=== PATIENT | female | born 1960 | race Caucasian/White ===

== ENCOUNTER 2022-12-21 21:46 | Observation (INO) | payer OTHER ==
[~2022-12-21] VITALS: Ht 170.2 cm; Wt 88.9 kg
[~2022-12-21 21:46] MED LIST: ASPIRIN E.C. 8181 MG PO; ATENOLOL25 MG PO; ATIVAN 1MG T1 MG/TAB PO; COLACE 100100 MG/CAP PO; FLOVENT 220MCG7.9 GM IH; FLOVENT DI50 MCG/Act IH; HCTZ 25MG TAB25 MG PO; HCTZ 25MG25 MG PO; K-DUR20 MEQ PO; MOTRIN 600600 MG/TAB PO; NEURONTIN100 MG PO; NEURONTIN100 MG/CAP PO; PROAIR HFA0.09 MG/AC IH; SINGULAIR 110 MG/TAB PO; TENORMIN 5050 MG/TAB PO; TRICOR 48MG48 MG PO; VITAMIN D31000 I1 PO; ZYRTEC ALLERGY10 MG PO
[2022-12-21 22:02] LABS: BASO % 0.3 % (0.0-2.0); EOS # 0.1 K/mm3 (0.0-0.7); EOS % 1.1 % (0.0-4.0); GRAN # 8.1 K/mm3 (1.4-6.5); GRAN % 66.2 % (42.2-75.2); HEMATOCRIT 40.3 % (37.0-47.0); HEMOGLOBIN 13.4 g/dl (12.5-16.0); LYMPH # 3.3 K/mm3 (1.2-3.4); LYMPH % 27.2 % (20.0-51.0); MEAN CELL VOLUME 94 fl (80.0-100.0); MEAN CORPUSCULAR HEMOGLOBIN 31 pg (27-31); MEAN CORPUSCULAR HGB CONC 33 g/dl (33.0-37.0); MEAN PLATELET VOLUME 9.7 fl (7.4-10.4); MONO # 0.6 K/mm3 (0.1-0.6); MONO % 4.9 % (1.7-9.3); PLATELET COUNT 369 K/mm3 (130-400); RED BLOOD COUNT 4.29 M/mm3 (4.10-5.30); REDCELL DISTRIBUTION WIDTH-CV 14.9 % (11.5-14.5)
[2022-12-21 22:12] LABS: PROTHROMBIN TIME 11.7 SECONDS (9.7-12.8)
[2022-12-21 22:23] LABS: ALANINE AMINOTRANSFERASE 17 U/L (0-55); ALBUMIN 3.9 gm/dL (3.4-4.8); ALKALINE PHOSPHATASE 141 U/L (40-150); ANION GAP 14 mmol/L (7-16); AST,SGOT 11 U/L (5-34); BILIRUBIN,TOTAL 0.6 mg/dL (0.2-1.2); BLOOD UREA NITROGEN 9 mg/dL (10-20); CALCIUM 9.8 mg/dL (8.4-10.2); CARBON DIOXIDE 30 mmol/L (23-31); CHLORIDE 93 mmol/L (98-107); GLUCOSE 128 mg/dL (70-99); SODIUM 137 mmol/L (136-145); TOTAL PROTEIN 7.6 gm/dL (6.2-8.1)
[2022-12-21 22:26] LABS: POTASSIUM 2.9 mmol/L (3.5-4.5)
[2022-12-21 22:31] LABS: TROPONIN-I < 0.010 ng/mL (0.00-0.033)
[2022-12-22] MEDS ORDERED: NEURONTIN300 MG/CAP PO (01:12)
[2022-12-22] MEDS ORDERED: REQUIP0.25 MG PO (01:12)
[2022-12-22 01:51] VITALS: BP 109/60; PULSE 55; TEMP 97.6
[2022-12-22 03:26] LABS: COLLECTION METHOD CLEAN CATCH
[2022-12-22 03:31] LABS: MUCOUS Present (NOT PRESENT); URINE BACTERIA Moderate /hpf (NONE SEEN); URINE RBC 0-2 /hpf (0-2)
[2022-12-22 03:32] LABS: PH 6.5 (5.0-8.5); URINE APPEARANCE Hazy (CLEAR/HAZY); URINE COLOR Yellow (YELLOW)
[2022-12-22 03:33] LABS: URINE BLOOD Negative (NEGATIVE); URINE GLUCOSE Negative (NEGATIVE); URINE KETONE Negative (NEGATIVE); URINE NITRATE Positive (NEGATIVE); URINE PROTEIN(semi-quant) Negative (NEGATIVE); URINE UROBILINOGEN 0.2 E.U/dL (0.2-1.0)
--- NOTE | 2022-12-22 05:00 | NUR ---
PT ARRIVED TO THE MEDICAL FLOOR AROUND 0200HRS TO ROOM 357. PT A&O X 4; VSS WITH B/P A BIT LOW; O2 RA. PT DENIED GENERAL PAIN, CHEST PAIN, PALPITATIONS, SOB, N,V,D OR DIZZINESS. ADMISSIONS ASSESSMENT COMPLETE. PT STATED SHE WOULD HAVE HER SISTER BRING IN HER MED LIST BECAUSE SHE WAS UNABLE TO REMEMBER ALL HER MEDS. PT ORIENTED TO THE ROOM AND HOSPITAL POLICY. POC DISCUSSED WITH PT. PT VERBALIZED UNDERSTANDING. ALL QUESTIONS AND CONCERNS ADDRESSED. PT EXPRESSED NO ADDITIONAL NEEDS AT THIS TIME. CALL LIGHT WITHIN REACH.
[2022-12-22 05:09] VITALS: BP 101/61; PULSE 56; TEMP 97.5
[2022-12-22 06:40] LABS: BASO # 0.1 K/mm3 (0.0-0.2); BASO % 0.6 % (0.0-2.0); EOS # 0.1 K/mm3 (0.0-0.7); EOS % 1.7 % (0.0-4.0); GRAN # 5.3 K/mm3 (1.4-6.5); GRAN % 62.9 % (42.2-75.2); HEMOGLOBIN 11.7 g/dl (12.5-16.0); LYMPH # 2.4 K/mm3 (1.2-3.4); LYMPH % 28.9 % (20.0-51.0); MEAN CELL VOLUME 93 fl (80.0-100.0); MEAN CORPUSCULAR HEMOGLOBIN 32 pg (27-31); MEAN CORPUSCULAR HGB CONC 34 g/dl (33.0-37.0); MONO # 0.5 K/mm3 (0.1-0.6); MONO % 5.7 % (1.7-9.3); PLATELET COUNT 333 K/mm3 (130-400); RED BLOOD COUNT 3.69 M/mm3 (4.10-5.30); REDCELL DISTRIBUTION WIDTH-CV 15.1 % (11.5-14.5)
[2022-12-22 06:43] LABS: HEMATOCRIT 34.3 % (37.0-47.0)
[2022-12-22 07:01] LABS: ANION GAP 9 mmol/L (7-16); BLOOD UREA NITROGEN 9 mg/dL (10-20); CALCIUM 8.9 mg/dL (8.4-10.2); CARBON DIOXIDE 29 mmol/L (23-31); CHLORIDE 99 mmol/L (98-107); CREATININE, serum 0.72 mg/dL (0.57-1.11); GLUCOSE 113 mg/dL (70-99); MAGNESIUM 1.9 mg/dL (1.6-2.6); POTASSIUM 3.5 mmol/L (3.5-4.5); SODIUM 137 mmol/L (136-145)
[2022-12-22 07:11] LABS: TROPONIN-I < 0.010 ng/mL (0.00-0.033)
--- NOTE | 2022-12-22 08:00 | NUR ---
Patient is resting in bed, aler and oriented x 4, states some pain in her chest but not as before. Telemetry in place, NSR. Assessment completed, no further needs at this time. Call light within reach.
[2022-12-22 08:13] VITALS: BP 101/43; PULSE 58; TEMP 98.4
--- NOTE | 2022-12-22 11:33 | NUR ---
Director Executive Communications rounds: Patient was eating breakfast. Director Executive Communications located straws for the Patient to make drinking her juice easier. Patient is unable to use left arm. Patient had a stroke. Patient has previously been to inpatient rehab at a facility in [place]. Director Executive Communications facilitated life review and provided supportive listening. Patient was able to cry at times. She said that she is not able to cry at home because she feels she needs to care for others. Patient's sister and [id number] live with her in [place]. She was supposed to be caring for them and now they frequently care for her. She has three sons. She is a . Director Executive Communications prayed for Patient.
[2022-12-22 11:57] VITALS: BP 93/51; PULSE 58; TEMP 98.1
--- NOTE | 2022-12-22 15:31 | NUR ---
SW met with pt for intake. Pt cofirmed living in [facility] with her son, Sister, and Brother in law. PT reports NOK is son Arley Delgado . Pt denies having DPOA. Pt denies oxygen at home. Pt confirms DME: walker, wheel chair, ptotty chair, shower chair. Pt reports needing help getting to the shower and getting dressed. Pt reports PCP is [facility] and fills meds there. Pt reports at times having communication issues with pharmacy but not having challenges with paying for them. Pt reports receiving Speech and OT from [facility] and PT from [facility]. Pt reports speeking to therapist about SNF due to caregivers being 5 years older than her and having limits on helping her. HUYEN will discuss with nurse and DC plan Home or SNF
[2022-12-22 16:15] VITALS: BP 110/40; PULSE 67; TEMP 98
[2022-12-22] MEDS ORDERED: PLAVIX 75MG TAB75 MG PO (18:14)
[2022-12-22] MEDS ORDERED: MIRTAZAPINE7.5 MG PO (18:20)
[2022-12-22] MEDS ORDERED: SENNA-LAX8.6 MG PO (18:21)
[2022-12-22] MEDS ORDERED: LIPITOR 40MG TA40 MG PO (18:23)
[2022-12-22] MEDS ORDERED: PROVIGIL 100MG100 MG PO (18:24)
[2022-12-22 20:00] VITALS: BP 105/44; PULSE 63; TEMP 97.4
[2022-12-23] VITALS (9 sets, daily range): BP systolic 101–120; BP diastolic 40–77; PULSE 58–84; TEMP 96.5–97.5
[2022-12-23 07:01] LABS: BASO # 0.1 K/mm3 (0.0-0.2); BASO % 0.6 % (0.0-2.0); EOS # 0.2 K/mm3 (0.0-0.7); GRAN % 62.4 % (42.2-75.2); HEMOGLOBIN 12.4 g/dl (12.5-16.0); LYMPH # 2.4 K/mm3 (1.2-3.4); LYMPH % 29.5 % (20.0-51.0); MEAN CELL VOLUME 92 fl (80.0-100.0); MEAN CORPUSCULAR HEMOGLOBIN 31 pg (27-31); MEAN CORPUSCULAR HGB CONC 34 g/dl (33.0-37.0); MEAN PLATELET VOLUME 10.1 fl (7.4-10.4); MONO # 0.4 K/mm3 (0.1-0.6); MONO % 5.3 % (1.7-9.3); PLATELET COUNT 326 K/mm3 (130-400); RED BLOOD COUNT 3.97 M/mm3 (4.10-5.30)
[2022-12-23 07:02] LABS: HEMATOCRIT 36.6 % (37.0-47.0)
[2022-12-23 07:11] LABS: CALCIUM 9.4 mg/dL (8.4-10.2); CREATININE, serum 0.71 mg/dL (0.57-1.11); POTASSIUM 3.2 mmol/L (3.5-4.5)
--- NOTE | 2022-12-23 07:45 | NUR ---
Pt sitting in recliner. Transferred to wheelchair, x2 assist. Morning medications held for stress test. Shift assessment completed. Telemetry on. L upper & lower extremity remain immobile. INT in R AC patent, no edmea or redness. Ethan,student currently obtaining VS. Pt aware she will be having a lexiscan today. Call light within reach.
[2022-12-23] MEDS ORDERED: CEFTIN 250250 MG/TAB PO (13:23)
--- NOTE | 2022-12-23 14:09 | NUR ---
CRISPIN charting reviewed, agree with documentation. PAIGE Flores Clinical Instructor
--- NOTE | 2022-12-23 15:04 | NUR ---
INT in L AC discontinued with catheter tip intact.
--- NOTE | 2022-12-23 15:47 | NUR ---
Pt discharge instructions given at this time. All questions answered. Pt waiting for ride to arrive.
== END 2022-12-23 16:30 | disposition home or self-care (01) ==
LOC: COL.ER 21:46 → MEDICAL 12-22 00:15
PROVIDERS: Emergency Medicine; Student in an Organized Health Care Education/Training Program; ADMIT Student in an Organized Health Care Education/Training Program
DX: R07.89 Other chest pain (principal); R60.0 Localized edema; N39.0 Urinary tract infection, site not specified; E87.6 Hypokalemia; D72.829 Elevated white blood cell count, unspecified; J43.9 Emphysema, unspecified; I10 Essential (primary) hypertension; F41.9 Anxiety disorder, unspecified; G25.81 Restless legs syndrome; Z87.891 Personal history of nicotine dependence; Z86.73 Personal history of transient ischemic attack (TIA), and cerebral infarction without residual deficits; Z79.899 Other long term (current) drug therapy
CPT/HCPCS: A9500; G0378; J0696; J1650; J2785; J3480; Q9967

== ENCOUNTER 2024-05-04 12:22 | Inpatient (IN) | payer MEDICARE, OTHER ==
[~2024-05-04] VITALS: Ht 170.2 cm; Wt 90.6 kg
[~2024-05-04 12:22] MED LIST changes: +CEFTIN 250250 MG/TAB PO; +DYAZIDE 25 MG-31 CAP PO; -HCTZ 25MG TAB25 MG PO; +LIPITOR 40MG TA40 MG PO; +MIRTAZAPINE7.5 MG PO; +NEURONTIN300 MG/CAP PO; +PLAVIX 75MG TAB75 MG PO; +PROVIGIL 100MG100 MG PO; +REQUIP0.25 MG PO; +SENNA-LAX8.6 MG PO
[2024-05-12] VITALS (7 sets, daily range): BP systolic 105–145; BP diastolic 69–87; PULSE 66–107; TEMP 97.3–97.9
[2024-05-12] MEDS ORDERED: Morphine 2 MG/1 ML VIAL [PACU/SDC ONLY] IV PRN (10:30)
[2024-05-12] MEDS ORDERED: HYDROmorphone 1 MG/1 ML SYRINGE [PACU/SDC ONLY] IV PRN (10:30)
[2024-05-12] MEDS ORDERED: fentaNYL 50 MCG/ML 1 ML SYRINGE/VIAL [PACU/SDC ONLY] IV PRN (10:30)
[2024-05-12] MEDS ORDERED: hydrALAZINE 20 MG/ML 1 ML VIAL IV PRN (10:30)
[2024-05-12] MEDS ORDERED: Ondansetron 4 MG/2 ML VIAL IV PRN (10:30)
[2024-05-12] MEDS ORDERED: droPERidol 2.5 MG/ML 2 ML VIAL IV PRN (10:30)
[2024-05-12] MEDS ORDERED: LR 1,000 ML IV SCH (11:00)
[2024-05-12] MEDS ORDERED: Gabapentin 100 MG CAP PO SCH (11:30)
[2024-05-12] MEDS ORDERED: metroNIDAZOLE 500 MG/100 ML IVPB IV SCH (11:30)
[2024-05-12] MEDS ORDERED: Acetaminophen 500 MG TAB PO SCH (11:30)
[2024-05-12] MEDS ORDERED: Celecoxib 200 MG CAP PO SCH (11:30)
[2024-05-12 13:14] LABS: BASO % 0.3 % (0.0-2.0); EOS # 0.1 K/mm3 (0.0-0.7); EOS % 1.1 % (0.0-4.0); GRAN # 6.8 K/mm3 (1.4-6.5); GRAN % 73.2 % (42.2-75.2); LYMPH # 1.9 K/mm3 (1.2-3.4); LYMPH % 20.1 % (20.0-51.0); MEAN CELL VOLUME 86 fl (80.0-100.0); MEAN CORPUSCULAR HEMOGLOBIN 27 pg (27-31); MEAN CORPUSCULAR HGB CONC 31 g/dl (33.0-37.0); MONO # 0.5 K/mm3 (0.1-0.6); PLATELET COUNT 374 K/mm3 (130-400); RED BLOOD COUNT 4.11 M/mm3 (4.10-5.30); REDCELL DISTRIBUTION WIDTH-CV 18.1 % (11.5-14.5)
[2024-05-12 13:16] LABS: HEMATOCRIT 35.2 % (37.0-47.0)
[2024-05-12 13:27] LABS: CALCIUM 10.6 mg/dL (8.4-10.2); CREATININE, serum 1.01 mg/dL (0.57-1.11)
[2024-05-12 13:42] LABS: POTASSIUM 2.5 mEq/L (3.5-4.5)
[2024-05-12] MEDS ORDERED: Potassium Chloride 100 ML IV SCH (14:00)
[2024-05-12] MEDS ORDERED: *Potassium Replacement Protocol MC SCH ×2 (14:00→15:15)
[2024-05-12] MEDS ORDERED: PROZAC 10MG10 MG PO (14:07)
[2024-05-12] MEDS ORDERED: INDERAL 10MG10 MG PO (14:07)
[2024-05-12] MEDS ORDERED: UBRELVY50 MG PO (14:08)
[2024-05-12] MEDS ORDERED: FLEXERIL 1010 MG/TAB PO (14:11)
[2024-05-12] MEDS ORDERED: REMERON30 MG PO (14:12)
[2024-05-12] MEDS ORDERED: K-TAB20 PO (14:12)
--- NOTE | 2024-05-12 14:40 | NUR ---
1347-B TONY TATE AND DR SAN NOTIFIED OF LAB VALUE. 1348-ORDERS RECEIVED FROM DR SAN FOR IV POTASSIUM REPLACEMENT. DR SAN WILL DISCUSS WITH PATIENT PLAN OF CARE. 1410-DR SAN AT BEDSIDE. PLAN OF CARE TO ADMIT PT AND FOLLOW POTASSIUM PROTOCOL. DR SAN CONSULTED HOSPITALIST. 1422-REPORT CALLED TO [facility]. 1440-PT OFF UNIT PER WHEELCHAIR. PT TO ROOM 323.
--- NOTE | 2024-05-12 14:45 | NUR ---
PATIENT ADMITED INTO ROOM 323. SURGERY CANCELED DUE TO K+ OF 2.5, SEE REPLACEMENT ORDERS. IV FLUIDS INFUSING VIA PUMP INTO RIGHT AC IV. PATIENT C/O SEVERE RESTLESS LEGS AND HAS EXTREME KICKING/TWITCHING OF BLE. PATIENT HAS HX OF RESTLESS LEGS AND REPORTS FREQUENT FALLS AT HOME, SEE SKIN ASSESSMENT. HEAD TO TOE ASSESSMENT COMPLETE. VSS AND TELE INPLACE. TOLERATING FULL LIQUIDS. HOSPITALIST NOTIFIED OF ARRIVAL. PLAN IS FOR SURGERY FRIDAY AROUND 1130. NO OTHER NEEDS AT THIS TIME. ORIENTED TO ROOM. CALL LIGHT IN REACH. BED ALARM ON.
[2024-05-12] MEDS ORDERED: Potassium Bicarbonate/Citrate 20 MEQ Effervescent TAB PO SCH (15:15)
[2024-05-12] MEDS ORDERED: Albuterol/Ipratropium 3 MG-0.5 MG/3 ML Neb Soln IH PRN (15:30)
[2024-05-12] MEDS ORDERED: Cyclobenzaprine 10 MG TAB PO PRN (16:00)
[2024-05-12 18:23] LABS: COLLECTION METHOD CLEAN CATCH
[2024-05-12 18:31] LABS: URINE APPEARANCE CLOUDY (CLEAR/HAZY); URINE BLOOD NEGATIVE (NEGATIVE); URINE COLOR YELLOW (YELLOW); URINE GLUCOSE NEGATIVE (NEGATIVE); URINE KETONE NEGATIVE (NEGATIVE); URINE NITRATE POSITIVE (NEGATIVE); URINE PROTEIN(semi-quant) NEGATIVE (NEGATIVE); URINE UROBILINOGEN 0.2 E.U/dL (0.2-1.0)
[2024-05-12] MEDS ORDERED: Mirtazapine 15 MG TAB PO SCH (19:00)
[2024-05-12] MEDS ORDERED: Montelukast 10 MG TAB PO SCH (21:00)
[2024-05-12] MEDS ORDERED: Atorvastatin 40 MG TAB PO SCH (21:00)
[2024-05-12] MEDS ORDERED: rOPINIRole 0.5 MG TAB PO SCH (21:00)
[2024-05-12] MEDS ORDERED: Propranolol 10 MG TAB PO SCH (21:00)
[2024-05-12] MEDS ORDERED: Gabapentin 300 MG CAP PO SCH (21:00)
--- NOTE | 2024-05-12 21:00 | NUR ---
PT A&O X4 LAYING IN BED. VSS. HAS BEEN UP TO BSC SEVERAL TIMES, WEAK GAIT & LEFT SIDE DEFICITS, PT REPORTS FROM PREVIOUS CVA. PT DENYING PAIN STATES HER LEGS ARE JUST VERY RESTLESS, GAVE SCHEDULED HS MEDS TO HELP WITH THIS. LR AT 100MLS/HR TO RIGHT AC. PT DENYING FURTHER NEEDS. CALL LIGHT IN REACH& FALL PRECAUTIONS IN PLACE
[2024-05-13] VITALS (11 sets, daily range): BP systolic 90–127; BP diastolic 56–76; PULSE 68–109; TEMP 97.4–97.8
--- NOTE | 2024-05-13 | NUR ---
PT REQUESTING SOMETHING TO HELP WITH HER RESTLESS LEGS, GAVE PRN FLEXERIL PER NOV. ALSO GAVE LAST DOSE OF K+ REPLACEMENT, ORDER PLACED FOR K+ RECHECK AT 030.
[2024-05-13 03:54] LABS: BASO % 0.4 % (0.0-2.0); EOS # 0.1 K/mm3 (0.0-0.7); EOS % 1.4 % (0.0-4.0); GRAN # 4.9 K/mm3 (1.4-6.5); GRAN % 67.2 % (42.2-75.2); LYMPH # 1.7 K/mm3 (1.2-3.4); LYMPH % 23.4 % (20.0-51.0); MEAN CELL VOLUME 84 fl (80.0-100.0); MEAN CORPUSCULAR HGB CONC 31 g/dl (33.0-37.0); MEAN PLATELET VOLUME 9.9 fl (7.4-10.4); MONO # 0.5 K/mm3 (0.1-0.6); MONO % 7.3 % (1.7-9.3); PLATELET COUNT 307 K/mm3 (130-400); RED BLOOD COUNT 3.61 M/mm3 (4.10-5.30); REDCELL DISTRIBUTION WIDTH-CV 17.8 % (11.5-14.5)
[2024-05-13 04:08] LABS: CALCIUM 8.8 mg/dL (8.4-10.2); CREATININE, serum 0.82 mg/dL (0.57-1.11); MAGNESIUM 1.8 mg/dL (1.6-2.6)
[2024-05-13 04:14] LABS: HEMATOCRIT 30.3 % (37.0-47.0); HEMOGLOBIN 9.5 g/dl (12.5-16.0); MEAN CORPUSCULAR HEMOGLOBIN 26 pg (27-31)
--- NOTE | 2024-05-13 05:52 | NUR ---
pt up to bsc several times throughout the night having loose stools. currently resting in bed with unlabored resp. call light in reach & fall precautions in place
[2024-05-13] MEDS ORDERED: Potassium Bicarbonate/Citrate 20 MEQ Effervescent TAB PO SCH (07:15)
[2024-05-13] MEDS ORDERED: Modafinil 100 MG TAB PO SCH (08:00)
--- NOTE | 2024-05-13 08:00 | NUR ---
PATIENT IS A&O. VSS ON TELE. C/O NAUSEA OR PAIN. PATIENT IS C/O OF HER CHRONIC RESTLESS LEGS, GAVE SCHEDULED AM MEDS, SEE MAR. TOLERATING FULL LIQUID DIET. IV MAG INFUSING PER ORDERS, SEE MAR. ORAL POTASSIUM ALSO GIVEN PER PROTOCOL. AM K+ WAS 3.0. PLAN IS FOR SURGERY TOMORROW AROUND 1130 IF POTASSIUM LEVEL IMPROVED. HEAD TO TOE ASSESSMENT COMPLETE. DNR STATUS. AM MEDS GIVEN. NO OTHER NEEDS AT THIS TIME. CALL LIGHT IN REACH. BED ALARM ON.
[2024-05-13] MEDS ORDERED: Magnesium Sulfate 4% 50 ML IV ONE (08:15)
[2024-05-13] MEDS ORDERED: cefTRIAXone 1 G in Water For Injection,Sterile 10 ML IV SCH (08:15)
[2024-05-13] MEDS ORDERED: FLUoxetine 10 MG TAB/CAP PO SCH (09:00)
[2024-05-13] MEDS ORDERED: Cetirizine 10 MG TAB PO SCH (09:00)
[2024-05-13] MEDS ORDERED: hydroCHLOROthiazide 25 MG TAB PO SCH (09:00)
[2024-05-13] MEDS ORDERED: Gabapentin 300 MG CAP PO SCH (09:00)
--- NOTE | 2024-05-13 10:31 | NUR ---
burlap worker met with pt to discuss discharge planning. She reports to live with her sister, son Gee, and her sister's in [place]. She reports to see Dr. Barber for PCP needs and obtains medications from [facility] with no difficulties. She reports to have Medicare Humana and insurance. She questioned if she could get Medicaid. SW then asked about assests and income, she reports she was told previously she had too many assests. SW advised she would likely not qualify, but could still apply if she wanted. She reports to need assistance with dressing, but is independent with all other ADLS. She states she uses a ruperto walker, CPAP, stair lift, and scooter for DME. She does not have a DPOA-HC and was provided a copy as she reports wanting to make her sister DPOA. She reports to have three sons, Danny [phone], Gee, and Stu. SW advised to call if she would like to create one. SW advised PT/OT will work with her and suggest any rehab or therapy needs. Pt reports she has gone to [facility] and would be interested in restarting this if able. SW advised she will follow for their reccomendations. HUYEN spoke with IRVING Escobar and informed her pt needs PT/OT per RN stating she is weak and has an unsteady gait. Discharge Plan: pt/ot pending, likely home with OP
--- NOTE | 2024-05-13 11:00 | NUR ---
PATIENT IS WEAK, UNSTEADY GAIT. HX OF CVA WITH LEFT SIDED WEAKNESS, LUE IS NEARLY FLACCID. PATIENT REPORTS FREQUENT FALLS AT HOME. PT/OT CONSULTED.
--- NOTE | 2024-05-13 12:34 | NUR ---
D: Greige Mender stopped by room on rounds. A: Pt was resting and content. Pt has no needs right now. P: Greige Mender informed pt that if she needed anything from the steam engineer area to let her nurse know. Greige Mender will follow up as needed.
--- NOTE | 2024-05-13 20:15 | NUR ---
Patient assessed at this time, see shift assessment, A/Ox3, denies pain or discomfort at this time, with left side weakness which she has a history of CVA, INT to right arm infusing well, instructed to be on NPO postmidnight for the planned surgery, denies further needs, call light and personal items within reach, SCD's on, fall precautions in place, will continue to monitor.
--- NOTE | 2024-05-13 20:45 | NUR ---
Patient received 1gm of magnesium today, spoken to Terrance the PA and received an order for another 1gm of magnesium IV, given, see emar for details.
[2024-05-13] MEDS ORDERED: Propranolol 10 MG TAB PO SCH (21:00)
[2024-05-14] VITALS (19 sets, daily range): BP systolic 83–127; BP diastolic 37–79; PULSE 63–92; TEMP 97.4–97.9
[2024-05-14 06:34] LABS: BASO % 0.3 % (0.0-2.0); EOS # 0.2 K/mm3 (0.0-0.7); EOS % 3.2 % (0.0-4.0); GRAN # 4.4 K/mm3 (1.4-6.5); GRAN % 66.8 % (42.2-75.2); LYMPH # 1.5 K/mm3 (1.2-3.4); LYMPH % 23.3 % (20.0-51.0); MEAN CELL VOLUME 86 fl (80.0-100.0); MEAN CORPUSCULAR HGB CONC 31 g/dl (33.0-37.0); MEAN PLATELET VOLUME 10.2 fl (7.4-10.4); MONO # 0.4 K/mm3 (0.1-0.6); MONO % 6.1 % (1.7-9.3); PLATELET COUNT 284 K/mm3 (130-400); RED BLOOD COUNT 3.45 M/mm3 (4.10-5.30); REDCELL DISTRIBUTION WIDTH-CV 18.1 % (11.5-14.5)
[2024-05-14 06:36] LABS: HEMATOCRIT 29.5 % (37.0-47.0); HEMOGLOBIN 9.2 g/dl (12.5-16.0); MEAN CORPUSCULAR HEMOGLOBIN 27 pg (27-31)
[2024-05-14 06:51] LABS: CALCIUM 9.1 mg/dL (8.4-10.2); CREATININE, serum 0.82 mg/dL (0.57-1.11); POTASSIUM 3.8 mEq/L (3.5-4.5)
--- NOTE | 2024-05-14 08:00 | NUR ---
PATIENT IS A&O. VSS. 02 @ 2L PER NC OVER NIGHT. PATIENT IS TO WEAR O2 @ 2L AT HS AT HOME BUT HASN'T HAD A CHANCE TO GET HOME OXYGEN SET UP YET. RA DURING THE DAY WITH SATS IN MID TO UPPER 90'S. IS MOSTLY NON-COMPLIENT WITH HER HOME C-PAP. NO COMPLAINTS THIS AM. NPO FOR PENDING SURGERY. CONSENT ALREADY ON CHART. RIGHT AC IV TO INT. 1-2 ASSIST WITH WALKER. PATIENT HAS HX OF CVA WITH LEFT SIDE WEAKNESS. LUE IS FLACCID. UNSTEADY GAIT AND REPORTS FREQUENT FALLS AT HOME. HEAD TO TOE ASSESSMENT COMPETE. NO OTHER NEEDS AT THIS TIME. CALL LIGHT IN REACH.
[2024-05-14] MEDS ORDERED: fentaNYL 50 MCG/ML 2 ML VIAL ONE (10:35)
[2024-05-14] MEDS ORDERED: Ondansetron 4 MG/2 ML VIAL ONE (10:35)
[2024-05-14] MEDS ORDERED: Glycopyrrolate 0.2 MG/ML 1 ML VIAL ONE (10:35)
[2024-05-14] MEDS ORDERED: dexAMETHasone 10 MG/ML VIAL ONE (10:35)
[2024-05-14] MEDS ORDERED: Lidocaine PF 2% (20 MG/ML) 5 ML VIAL ONE (10:35)
[2024-05-14] MEDS ORDERED: Midazolam 2 MG/2 ML VIAL ONE (10:35)
[2024-05-14] MEDS ORDERED: NS 10 ML IV ONE (10:35)
[2024-05-14] MEDS ORDERED: Rocuronium 50 MG/5 ML Multi-Dose VIAL ONE (10:45)
--- NOTE | 2024-05-14 10:50 | NUR ---
PATIENT GOING DOWN TO OR. RIGHT AC IV LEAKING, OR & ANESTHESIA AWARE. PATIENT IS LUE RESTRICT DUE TO FLACCID POST CVA. RN ATTEMPTED, CARBON FURNACE OPERATOR ALSO ATTEMPTED AND UNSUCESSFUL. PATIENT GOING DOWN TO OR AND ANESTHESIA TO START IV. CONSENT ON CHART. IV FLUIDS TO GRAVITY TUBING READY. PATIENT NOW OFF FLOOR.
[2024-05-14] MEDS ORDERED: ePHEDrine 50 MG/ML VIAL ONE (12:10)
[2024-05-14] MEDS ORDERED: HYDROmorphone 1 MG/1 ML SYRINGE [PACU/SDC ONLY] IV PRN (12:30)
[2024-05-14] MEDS ORDERED: Morphine 2 MG/1 ML VIAL [PACU/SDC ONLY] IV PRN (12:30)
[2024-05-14] MEDS ORDERED: Meperidine 50 MG/ML 1 ML VIAL IV PRN (12:30)
[2024-05-14] MEDS ORDERED: Ondansetron 4 MG/2 ML VIAL IV PRN ×2 (12:30→15:00)
--- NOTE | 2024-05-14 12:48 | NUR ---
adult day care worker reviewed PT and OT recommendations, both recommend home health. SW met with patient to discuss discharge plan. SW provided Medicare.gov list of options for home health. Patient stated she has used [facility] before but patient was in the middle of working with OT, social sciences lecturer explained she would follow up on her final choice. Discharge plan: Home with home health
[2024-05-14] MEDS ORDERED: LR 1,000 ML IV ONE ×2 (12:51→14:31)
[2024-05-14] MEDS ORDERED: Naloxone 0.4 MG/ML VIAL IV PRN (15:00)
[2024-05-14] MEDS ORDERED: D5 1/2 NS & 20 mEq KCl 1,000 ML IV SCH (15:00)
[2024-05-14] MEDS ORDERED: HYDROmorphone 0.5 MG/0.5 ML SYRINGE IV PRN (15:00)
[2024-05-14] MEDS ORDERED: oxyCODONE 5 MG TAB PO PRN (15:00)
--- NOTE | 2024-05-14 17:50 | NUR ---
PATIENT BACK IN ROOM 323 POST-OP. ORIENTED BUT DROWSY. PACU REPORTED ISSUES WITH HYPOTENSION. B/P CURRENTLY IN THE LOW TO MID 90'S SYSTOLIC AFTER GETTING BOLUSES IN PACU. PACU REPORTED 3 LITERS OF FLUID GIVEN. HOB LOWERED. IV FLUIDS INFUSING VIA PUMP INTO LEFT AC IV STARTED BY ANESTHESIA. FAMILY ALREADY GONE. PATIENT RESTING WITHOUT COMPLAINTS. CALL LIGHT IN REACH. BED ALARM ON.
[2024-05-14] MEDS ORDERED: Acetaminophen 500 MG TAB PO SCH ×2 (18:00→20:25)
[2024-05-14] MEDS ORDERED: LR 500 ML IV ONE (20:15)
--- NOTE | 2024-05-14 20:15 | NUR ---
NOTIFIED IRVING COVINGTON OF PT'S BP 88/40, ORDERS REC'D, 500 ML BOLUS STARTED, PT IN BED, IN [place] POSITION, HOLDING 2100 MEDS
[2024-05-14 21:37] LABS: HEMATOCRIT 29.5 % (37.0-47.0)
[2024-05-15] VITALS (350 sets, daily range): BP systolic 67–161; BP diastolic 33–77; PULSE 76–100; TEMP 97.5–98.2; O2SAT 84–100
[2024-05-15] MEDS ORDERED: Acetaminophen 500 MG TAB PO SCH (02:00)
--- NOTE | 2024-05-15 03:48 | NUR ---
NOTIFIED IRVING COVINGTON OF BP
[2024-05-15] MEDS ORDERED: Albumin (Human) 100 ML IV ONE (04:00)
[2024-05-15] MEDS ORDERED: NS 1,000 ML IV ONE (04:00)
[2024-05-15] MEDS ORDERED: rOPINIRole 0.5 MG TAB PO ONE (06:30)
--- NOTE | 2024-05-15 06:36 | NUR ---
IRVING COVINGTON AT BEDSIDE AND AWARE SBP STILL REMAINS <100, SOLUCORTEF GIVEN X1, AND PT TO BE TRANSFERRED TO ICU, MEN'S SWIM COACH NOTIFIED. AM LABS ALSO ORDERED FOR STAT. PT C/O SEVERE RESTLESS LEGS, MEDS HELD LAST NOC, ONE TIME DOSE GIVEN, SEE EMAR. PT UPDATED ON POC AND TX.
[2024-05-15 06:52] LABS: MEAN CELL VOLUME 88 fl (80.0-100.0); MEAN CORPUSCULAR HGB CONC 30 g/dl (33.0-37.0); PLATELET COUNT 248 K/mm3 (130-400); RED BLOOD COUNT 2.94 M/mm3 (4.10-5.30); REDCELL DISTRIBUTION WIDTH-CV 18.2 % (11.5-14.5)
[2024-05-15 06:57] LABS: HEMATOCRIT 25.9 % (37.0-47.0); HEMOGLOBIN 7.8 g/dl (12.5-16.0); MEAN CORPUSCULAR HEMOGLOBIN 27 pg (27-31)
[2024-05-15 07:11] LABS: ALBUMIN 3.1 g/dL (3.4-4.8); BILIRUBIN,TOTAL 0.8 mg/dL (0.2-1.2); CALCIUM 8.3 mg/dL (8.4-10.2); CREATININE, serum 0.75 mg/dL (0.57-1.11); POTASSIUM 4.1 mEq/L (3.5-4.5); TOTAL PROTEIN 5.3 g/dl (6.2-8.1)
--- NOTE | 2024-05-15 07:32 | NUR ---
PCT notified this RN: Pt's BP 80s/40s. Pt assessment complete. A&Ox4. VSS stable other than BP. BP upon reassessment 79/38, 70/33. Placed Pt in [place], BP up to 83/33. S1S2. Lungs are diminished. ABD round, soft, tender to touch. Per Dr Madrigal, "feels good". Palpable pulses in all extremities. IV in L AC with 20 mEq potassium at 125 cc/hr. Pt denies dizziness, headaches. Pt reports pain 8/10 in ABD. Pt states she feels a pinching in LLQ when coughing. Educated Pt to splint incision when coughing with blanket. Pt states it is hard. [facility] Dr [facility] 2483 - Called report to PAIGE Ortega in ICU. 2260 - Pt transported to ICU.
--- NOTE | 2024-05-15 10:55 | NUR ---
MIDDLE SCHOOL SPORTS COACH met [facility] pt bedside to discuss HH agency choice. Pt has recently been moved to the ICU from surgical floor. Pt nurse stated that she was still appropriate for HH services at discharge. Pt has choosen [facility] and MIDDLE SCHOOL SPORTS COACH sent the referrals to [facility]. D/C plan: Home w/ HH
[2024-05-15] MEDS ORDERED: Melatonin 3 MG TAB PO PRN (12:30)
--- NOTE | 2024-05-15 13:45 | NUR ---
Data: Spiritual care visit attempted during Waiter/Waitress Dining Car rounds. Patient was sleeping. Assessment: None at this time. Plan of Care: Chaplains will remain available as needed/requested while Patient is admitted to this hospital.
--- NOTE | 2024-05-15 15:15 | NUR ---
Data: Patient accepted spiritual care visit offered this afternoon. Patient's sister is visiting. Patient accepted prayer. Assessment: Patient appreciates having her sister present. Plan of Care: Pit Slagman provided prayer. Chaplains will remain available as needed/requested while Patient is admitted to this hospital.
[2024-05-15 17:42] LABS: HEMATOCRIT 29.4 % (37.0-47.0); HEMOGLOBIN 8.9 g/dl (12.5-16.0)
--- NOTE | 2024-05-15 20:00 | NUR ---
Pt resting comfortably in bed, talking on the phone with sister. VSS. IV infusing with levophed without difficulty. Evening medications administered without difficulty. Pt denies pain or discomfort at this time. Midline incision and lap sites visualized. No new drainage noted. Pt repositioned and cleaned up without difficulty. Pt does not have any concerns or questions at this time.
[2024-05-16] VITALS (460 sets, daily range): BP systolic 98–176; BP diastolic 54–92; PULSE 84–109; TEMP 97.5–98.6; O2SAT 77–100
[2024-05-16 04:51] LABS: BASO % 0.1 % (0.0-2.0); GRAN # 8.7 K/mm3 (1.4-6.5); GRAN % 83.9 % (42.2-75.2); LYMPH # 1.2 K/mm3 (1.2-3.4); LYMPH % 11.1 % (20.0-51.0); MEAN CELL VOLUME 90 fl (80.0-100.0); MEAN CORPUSCULAR HGB CONC 30 g/dl (33.0-37.0); MEAN PLATELET VOLUME 9.6 fl (7.4-10.4); MONO # 0.4 K/mm3 (0.1-0.6); MONO % 4.3 % (1.7-9.3); PLATELET COUNT 246 K/mm3 (130-400); RED BLOOD COUNT 3.17 M/mm3 (4.10-5.30); REDCELL DISTRIBUTION WIDTH-CV 18.1 % (11.5-14.5)
[2024-05-16 04:58] LABS: HEMATOCRIT 28.6 % (37.0-47.0); HEMOGLOBIN 8.5 g/dl (12.5-16.0); MEAN CORPUSCULAR HEMOGLOBIN 27 pg (27-31)
[2024-05-16 05:09] LABS: ALBUMIN 2.6 g/dL (3.4-4.8); BILIRUBIN,TOTAL 0.5 mg/dL (0.2-1.2); CREATININE, serum 0.67 mg/dL (0.57-1.11); MAGNESIUM 1.8 mg/dL (1.6-2.6); TOTAL PROTEIN 5.1 g/dl (6.2-8.1)
--- NOTE | 2024-05-16 07:22 | NUR ---
Patient is off of levophed, blood pressure and MAP has been stable throughout the night. Levophed was shut off around 2230 05/15/24. Mentation has been oriented x3, keeps stating she is in her home and that we are home health nurses. Reorients well and then "remembers" where she is and what is all going on. Otherwise pleasant and resting this morning.
[2024-05-16] MEDS ORDERED: Clopidogrel 75 MG TAB PO SCH (10:08)
--- NOTE | 2024-05-16 19:00 | NUR ---
Received report from PAIGE Ortega. Patient resting quietly in bed. Vitals within normal limits. Denies pain or discomfort. Midline dressing is CDI.
[2024-05-17] VITALS (147 sets, daily range): BP systolic 131–170; BP diastolic 75–96; PULSE 73–95; TEMP 97.7–98.5; O2SAT 86–100
[2024-05-17] MEDS ORDERED: hydrALAZINE 20 MG/ML 1 ML VIAL IV ONE (02:45)
[2024-05-17 03:34] LABS: BASO % 0.2 % (0.0-2.0); EOS % 0.1 % (0.0-4.0); GRAN # 8.3 K/mm3 (1.4-6.5); GRAN % 85.9 % (42.2-75.2); LYMPH # 0.9 K/mm3 (1.2-3.4); MEAN CELL VOLUME 93 fl (80.0-100.0); MEAN CORPUSCULAR HGB CONC 30 g/dl (33.0-37.0); MEAN PLATELET VOLUME 9.9 fl (7.4-10.4); MONO # 0.4 K/mm3 (0.1-0.6); MONO % 4.4 % (1.7-9.3); PLATELET COUNT 284 K/mm3 (130-400); REDCELL DISTRIBUTION WIDTH-CV 18.5 % (11.5-14.5)
[2024-05-17 03:37] LABS: HEMATOCRIT 32.5 % (37.0-47.0); HEMOGLOBIN 9.6 g/dl (12.5-16.0); MEAN CORPUSCULAR HEMOGLOBIN 27 pg (27-31)
[2024-05-17 03:39] LABS: ALBUMIN 2.8 g/dL (3.4-4.8); BILIRUBIN,TOTAL 0.5 mg/dL (0.2-1.2); CALCIUM 8.8 mg/dL (8.4-10.2); CREATININE, serum 0.69 mg/dL (0.57-1.11); POTASSIUM 3.7 mEq/L (3.5-4.5); TOTAL PROTEIN 5.8 g/dl (6.2-8.1)
[2024-05-17] MEDS ORDERED: Potassium Chloride 100 ML IV SCH (04:45)
--- NOTE | 2024-05-17 07:00 | NUR ---
REPORT RECEIVED FROM PAIGE CLAY. PT RESTING IN BED, VSS ON 3L O2 PER NC. NO DRIPS INFUSING AT THIS TIME. RIJ TRIPLE LUMEN CENTRAL LINE WNL. SEAMAN CATHETER IN PLACE TO DEPENDENT DRAINAGE. MIDLINE INSCISION DRESSING CDI, 3 LAPS SITES INTACT, NO DRAINAGE OR REDNESS NOTED. CALL LIGHT IN REACH ON PT'S RIGHT SIDE AND BED ALARM IN PLACE FOR PT SAFETY.
[2024-05-17] MEDS ORDERED: NS 1,000 ML IV SCH (08:45)
[2024-05-17] MEDS ORDERED: Metoprolol Tartrate 5 MG/5 ML VIAL IV SCH (10:00)
[2024-05-17] MEDS ORDERED: hydrALAZINE 20 MG/ML 1 ML VIAL IV PRN (10:00)
--- NOTE | 2024-05-17 11:44 | NUR ---
HUYEN attended clinical rounding and was informed pt will move to the surgical floor when there is a bed. HUYEN faxed updates to [facility]. HUYEN notes PT reccomend rehab today. HUYEN team will continue to follow as pt was vomiting this morning. Discharge Plan: vs SNF?
--- NOTE | 2024-05-17 20:00 | NUR ---
PT MOVED TO 346 FROM ICU. MOVED TO SURGICAL BED. PT TOLERATED WELL. PT STATES IS IN NO PAIN, AND NAUSEA UNDER CONTROL JUST RECEIVED MEDS RECENTLY. PT NOTED TO HAVE DISTENDED ABDOMEN, SOFT AND NON TENDER. BOWEL SOUNDS HYPOACTIVE, PT CANT REMEMBER IF PASSING GAS. UNABLE TO MOVE LUE DUE TO PREVIOUS CVA, ALSO NOTED DEFICIT TO LLE, BUT ABLE TO MOVE SOME. ELEVATED LUE ON PILLOW DUE TO SOME SWELLING NOTED TO LEFT HAND. BLE ON PILLOW. SEAMAN CATHETER DRAINING PAZ URINE. COCCYX INTACT WITH NO REDNESS NOTED. WILL CONTINUE TO TURN PT FREQUENTLY WHILE IN BED. PT HAS COUGH NOTED, SOUNDS TO BE CLEARING THROAT SECRETIONS MORE THAN CONGESTION IN LUNGS. HAS O2 ON VIA NC AT 2L. ABD INC WITH AIRSTRIP DRESSING IN PLACE, CHANGED AT THIS TIME. INC WITH NO REDNESS, EDGES WELL APPROXIMATED.
[2024-05-18 03:25] VITALS: BP 120/74; PULSE 78; TEMP 97.4
[2024-05-18 06:50] LABS: BASO % 0.1 % (0.0-2.0); EOS # 0.1 K/mm3 (0.0-0.7); EOS % 1.7 % (0.0-4.0); GRAN # 5.8 K/mm3 (1.4-6.5); GRAN % 73.9 % (42.2-75.2); LYMPH # 1.5 K/mm3 (1.2-3.4); LYMPH % 18.4 % (20.0-51.0); MEAN CELL VOLUME 90 fl (80.0-100.0); MEAN CORPUSCULAR HGB CONC 30 g/dl (33.0-37.0); MEAN PLATELET VOLUME 9.7 fl (7.4-10.4); MONO # 0.4 K/mm3 (0.1-0.6); MONO % 5.5 % (1.7-9.3); PLATELET COUNT 265 K/mm3 (130-400); REDCELL DISTRIBUTION WIDTH-CV 18.5 % (11.5-14.5)
[2024-05-18 07:10] LABS: HEMATOCRIT 29.8 % (37.0-47.0); HEMOGLOBIN 8.9 g/dl (12.5-16.0); MEAN CORPUSCULAR HEMOGLOBIN 27 pg (27-31)
[2024-05-18 07:14] LABS: ALBUMIN 2.4 g/dL (3.4-4.8); BILIRUBIN,TOTAL 0.4 mg/dL (0.2-1.2); CALCIUM 8.7 mg/dL (8.4-10.2); CREATININE, serum 0.7 mg/dL (0.57-1.11); POTASSIUM 3.5 mEq/L (3.5-4.5); TOTAL PROTEIN 5.1 g/dl (6.2-8.1)
[2024-05-18 08:17] VITALS: BP 115/76; PULSE 76; TEMP 97.5
--- NOTE | 2024-05-18 08:41 | NUR ---
PT RESTING IN BED, DR NG ROUNDED ON PT THIS AM. SEE NOTES. PT REMAINS NPO AT THIS TIME. IV TO RIJ. AM MEDS GIVEN ORDERED. PT DENIES NEEDS AT THIS TIME. PT HAS HX OF COPD AND RESPIRATIONS ARE COARSE. PT ON 3L O2 TO MAINTAIN IN LOW 90S - HIGH 80S.
[2024-05-18] MEDS ORDERED: D5 1/2 NS 1,000 ML IV SCH (10:15)
[2024-05-18] MEDS ORDERED: Budesonide Neb Susp 0.5 MG/2 ML AMP IH SCH (10:30)
[2024-05-18] MEDS ORDERED: Formoterol Neb Soln 20 MCG/2 ML UD IH SCH (10:30)
[2024-05-18 12:13] VITALS: BP 95/58; PULSE 64; TEMP 97.5
[2024-05-18 15:28] VITALS: BP 124/67; PULSE 66; TEMP 98.4
--- NOTE | 2024-05-18 17:11 | NUR ---
case management social worker reviewed PT notes which was recommending post acute rehab. SW met with patient and provided the medicare.gov list of options for SNF. Patient would like a referral to [facility]. SW reviewed patient's insurance and she has Medicare [facility]. HUYEN secure emailed to [facility] and [facility] then met with patient and explained [facility] is not currently in network with [facility] and asked if she would still like the referral sent there. Patient stated not at this time. HUYEN contacted [facility] whom are still reviewing. Discharge plan: SNF
--- NOTE | 2024-05-18 17:29 | NUR ---
SEAMAN CATHETER DISCONTINUED PER ORDERS TIP INTACT, PT TOLERATING WELL.
[2024-05-18 19:52] VITALS: BP 96/56; PULSE 73; TEMP 98
--- NOTE | 2024-05-18 20:00 | NUR ---
PATIENT IS A&O. VSS ON TELE. 02 @ 2L PER NC. PATIENT HAS A NEW ORDER TO START WEARING 02 @ 2L AT HS AT HOME. C/O RESTLESS LEGS AND REQUESTING MEDS, SEE MAR. NO C/O N/V. IV FLUIDS INFUSING VIA PUMP INTO RIGHT IJ. LEFT AC IV TO INT. NPO, EXCEPT SIPS WITH MEDS. ABD IS ROUND AND NOTES HYPOACTIVE BOWL SOUNDS. NO REPORTS OF PASSING FLATUS AT THIS TIME. PURWICK INPLACE. 2 ASSIST WITH WALKER. PATIENT HAS HX OF CVA WITH LEFT SIDE WEAKNESS. LUE IS FLACCID, LLE IS WEAK. PT/OT CONSULTED. HEAD TO TOE ASSESSMENT COMPLETE. DNR STATUS. NO OTHER NEEDS AT THIS TIME. CALL LIGHT IN REACH.
[2024-05-19] VITALS (7 sets, daily range): BP systolic 90–115; BP diastolic 52–72; PULSE 72–83; TEMP 97.6–99.1
--- NOTE | 2024-05-19 04:55 | NUR ---
PATIENT STILL UNABLE TO VOID THIS SHIFT. DAY SHIFT REPORTS PULLING SEAMAN. BLADDER SCAN SHOWED 450CC. CALLED HOSPITALIST. STRAIGHT CATHED FOR 450CC OF PAZ, STRONG SMELLING URINE. PURWICK BACK IN PLACE.
[2024-05-19] MEDS ORDERED: *Potassium Replacement Protocol MC SCH (07:15)
[2024-05-19] MEDS ORDERED: Potassium Bicarbonate/Citrate 20 MEQ Effervescent TAB PO SCH (07:15)
--- NOTE | 2024-05-19 08:29 | NUR ---
PT RESTING IN BED DECLINED BREAKFAST. POTASSIUM PROTOCOLS FOLLOWED. REVIEWED CAREPLAN WITH PT. PT VERBALIZED UNDERSTANDING. DRESSINGS TO ABD CDI. IV TO RFA, PUREWICK INPLACE. PT UNABLE TO VOID OVER NOC.
--- NOTE | 2024-05-19 15:30 | NUR ---
SEAMAN CATHETER PLACED PER ORDERS. IMMEDIATE URINE RETURN ON PLACEMENT. PT TOLERATED WELL.
--- NOTE | 2024-05-19 17:53 | NUR ---
benzene worker was notified [facility] is unable to accept. HUYEN submitted for authorization for [employer] through [employer] via fax. HUYEN was notified [facility] is able to accept as long as patient is not currently receiving treatment for cancer via radiation or chemo. HUYEN confirmed with patient and her son, Stu, West# [phone] that patient has not been receiving radiation or chemo and does not plan to. HUYEN updated Stu on the plan for discharge to [facility] once insurance approves it for rehab. Stu understood and explained he was coming to visit his mom today. HUYEN met with patient and provided the update above. Patient understood. HUYEN received a call from [employer] expressing patient was approved for SNF. Authorization ID is [id number]. HUYEN provided this information to [facility]. V expressed they could accept tomorrow 05/20/24. HUYEN notified Dr. Plunkett of the above information. Discharge plan: [facility]
--- NOTE | 2024-05-19 20:40 | NUR ---
PT A&O X3 LAYING IN BED. VSS, PT ON OXYGEN AT 2L/NC. MIDLINE DRSG IS CDI & X3 LAP SITES WITH BANDAIDS ARE CDI. PTS DENYING PAIN. REPORTING SOME NAUSEA, GAVE PRN ZOFRAN PER MAR. SEAMAN TO DD WITH PAZ OUTPUT. RT IJ FLUSHES & HAS BLOOD RETURN & INT TO LEFT AC PATENT. BLE SCDS ON. PT DENYING FURTHER NEEDS. CALL LIGHT IN REACH
[2024-05-20] VITALS (12 sets, daily range): BP systolic 104–134; BP diastolic 59–74; PULSE 72–94; TEMP 97.5–98.6
--- NOTE | 2024-05-20 06:20 | NUR ---
PT RESTING IN BED WITH UNLABORED RESP. GAVE PRN COMPAZINE & ZOFRAN PER MAR THROUGHOUT THE NIGHT PT WAS C/O NAUSEA. CALL LIGHT IN REACH
[2024-05-20 06:32] LABS: BASO % 0.3 % (0.0-2.0); EOS # 0.2 K/mm3 (0.0-0.7); EOS % 2.8 % (0.0-4.0); GRAN # 5.1 K/mm3 (1.4-6.5); GRAN % 70.3 % (42.2-75.2); LYMPH # 1.5 K/mm3 (1.2-3.4); LYMPH % 20.3 % (20.0-51.0); MEAN CELL VOLUME 88 fl (80.0-100.0); MEAN CORPUSCULAR HGB CONC 31 g/dl (33.0-37.0); MEAN PLATELET VOLUME 9.6 fl (7.4-10.4); MONO # 0.4 K/mm3 (0.1-0.6); PLATELET COUNT 241 K/mm3 (130-400); RED BLOOD COUNT 3.51 M/mm3 (4.10-5.30); REDCELL DISTRIBUTION WIDTH-CV 17.3 % (11.5-14.5)
[2024-05-20 06:43] LABS: HEMATOCRIT 30.8 % (37.0-47.0); HEMOGLOBIN 9.5 g/dl (12.5-16.0); MEAN CORPUSCULAR HEMOGLOBIN 27 pg (27-31)
[2024-05-20 06:46] LABS: CALCIUM 8.5 mg/dL (8.4-10.2); CREATININE, serum 0.7 mg/dL (0.57-1.11); POTASSIUM 3.8 mEq/L (3.5-4.5)
--- NOTE | 2024-05-20 08:00 | NUR ---
PATIENT IS A&O BUT DROWSY AND C/O AN UPSET STOMACH, NO EMESIS. GAVE PRN IV ZOFRAN. PATIENT IS PALE, WEAK & DROWSY. AM HGB OF 9.5. VSS ON TELE. CLEAR LIQUID TRAY AT BEDSIDE BUT PATIENT IS NOT INTERESTED IN ORAL INTAKE AND ASKED NURSING TO COME BACK A LITTLE LATER FOR AM MEDS, SEE MAR. ABD IS ROUND, SOFT AND WITH HYPOACTIVE BOWL SOUNDS. PATIENT REPORTS SOME FLATUS, NO BM. SEAMAN TO DD WITH MOD AMOUNTS OF YELLOW URINE NOTED. RIGHT IJ AND LEFT AC IV BOTH TO INT. ABD MIDLINE DSG IS CD&I WITH AIRSTRIP. ABD LAP SITES X3 ARE CD&I. SCD'S CURRENTLY OFF. 2 ASSIST WITH WALKER. PATIENT HAS HX OF CVA WITH LLE WEAKNESS & LUE IS FLACCID. PT/OT CONSULTED. HEAD TO TOE ASSESSMENT COMPLETE. DNR/DNI STATUS. PATIENT JUST WANTING TO SLEEP IN THIS AM. NO OTHER NEEDS AT THIS TIME. CALL LIGHT IN REACH. BED ALARM ON.
--- NOTE | 2024-05-20 12:00 | NUR ---
PATIENT HAS LOW FIBER TRAY AT BEDSIDE BUT PATIENT SEEMS UNINTERESTED IN EATTING EVEN THOUGH SHE SAYS SHE WANTS TO TRY REAL FOOD. DIETARY AT BEDSIDE CONSULTING WITH PATIENT. WILL MONITOR PROGRESS WITH ORAL INTAKE.
--- NOTE | 2024-05-20 14:26 | NUR ---
highway maintenance crew worker attended interdisciplinary clinical rounding with Dr. Plunkett. Patient is not medically ready for discharge. SW updated [facility] on patient's status. HUYEN Nina secure emailed updates to [facility]. HUYEN met with patient and reviewed the important message from Medicare. Patient understood and had no questions. Patient signed the form. SW made a copy, placed original in chart and provided copy to patient. Discharge plan: [facility]- SNF
--- NOTE | 2024-05-20 16:40 | NUR ---
PATIENT SITTING UP IN BED WHEN SHE SUDDENTLY GOT SICK AND VOMITED APPROX 550CC OF GREEN BILE. PATIENT CLEANED UP, NEW GOWN & LINENS. PATIENT REPORTS SHE FEELS BETTER NOW, DENIES NEED FOR ZOFRAN NOW. 2 ASSIST BACK TO BED. PATIENT RESTING UP IN BED NIBBLING ON A CRACKER.
--- NOTE | 2024-05-20 21:34 | NUR ---
Patient assessed at this time, see shift assessment, reports her nausea is better and wanted to try to take her pills, zofran given an hour ago, denies pain at this time, midline sutures intact, 3 lap sites bandaid clean, dry and intact, with RIJ flushes well with good blood return, INT to left antecubital infusing well, has been passing gas but BS still hypoactive, denies further needs, call light and personal items within reach, will continue to monitor.
--- NOTE | 2024-05-20 23:35 | NUR ---
Report from primary nurse Laura that tele called with reports of V tach. This nurse and primary nurse to room-VS stable. Patient is awake and restless in bed. Denies chest pain/nausea/shortness of breath. TELE notified of need for EKG. IRVING Carlos notified and no new orders received. Will monitor.
[2024-05-21] VITALS (11 sets, daily range): BP systolic 103–131; BP diastolic 55–71; PULSE 77–91; TEMP 97.4–98.8
--- NOTE | 2024-05-21 01:30 | NUR ---
Patient reports nausea at this time, IV compazine given, will continue to monitor.
--- NOTE | 2024-05-21 05:43 | NUR ---
Patient resting in bed, eyes closed, looks comfortable, respirations even and unlabored.
[2024-05-21 05:55] LABS: BASO % 0.2 % (0.0-2.0); EOS # 0.2 K/mm3 (0.0-0.7); EOS % 2.1 % (0.0-4.0); GRAN # 6.7 K/mm3 (1.4-6.5); GRAN % 74.2 % (42.2-75.2); LYMPH # 1.6 K/mm3 (1.2-3.4); LYMPH % 17.7 % (20.0-51.0); MEAN CELL VOLUME 87 fl (80.0-100.0); MEAN CORPUSCULAR HGB CONC 32 g/dl (33.0-37.0); MEAN PLATELET VOLUME 9.6 fl (7.4-10.4); MONO # 0.5 K/mm3 (0.1-0.6); MONO % 5.4 % (1.7-9.3); PLATELET COUNT 258 K/mm3 (130-400); RED BLOOD COUNT 3.48 M/mm3 (4.10-5.30); REDCELL DISTRIBUTION WIDTH-CV 17.7 % (11.5-14.5)
[2024-05-21 05:58] LABS: HEMATOCRIT 30.3 % (37.0-47.0); HEMOGLOBIN 9.6 g/dl (12.5-16.0); MEAN CORPUSCULAR HEMOGLOBIN 28 pg (27-31)
[2024-05-21 06:11] LABS: CALCIUM 8.2 mg/dL (8.4-10.2); CREATININE, serum 0.7 mg/dL (0.57-1.11); POTASSIUM 3.4 mEq/L (3.5-4.5)
[2024-05-21] MEDS ORDERED: Potassium Chloride 100 ML IV SCH (07:30)
[2024-05-21] MEDS ORDERED: NS 1,000 ML IV SCH (08:45)
--- NOTE | 2024-05-21 09:15 | NUR ---
HUYEN contacted [facility] to update them that patient was still currently in the hospital due to medical reasons. [facility] expressed the authorization is good until 05/24/24 and [facility] would need to update them once she has transferred to them. P# [phone] case investigator with [facility] is Virginia Carter. licensed clinical social worker attended interdisciplinary clincial rounding with Dr. Trevino. Patient is not ready for discharge due to nausea and vomiting. HUYEN notified [facility] of the above information. HUYEN secure emailed clinical updates to [facility]. Discharge plan: [facility] - SNF
--- NOTE | 2024-05-21 10:11 | NUR ---
Patient was seen this morning, reporting no nausea or pain. Patient was lethargic and just waking up. Patient was informed of the plan this AM that the plan was to give her a dose of zofran since yesterday she had a difficult time taking her medications and vomited. She was given her zofran this AM, and potassium IV protocol was started along with NS 100. Patient worked with therapy, and was left in her recliner with her legs elevated. Patient was there given her medications, one a time with sips of water. No nausea noted. Patient tolerating medications at this time. This nurse did notice patient was having audible crackles after each sip of water, educated to utilize her incentive spirometer.
--- NOTE | 2024-05-21 10:54 | NUR ---
wood processing worker contacted patient's son, Stu, , and updated him that the patient is still here and social work over the weekend can update if she discharges to [facility] either Friday or Friday. Stu stated he would try to call patient's room and speak with her today. Discharge plan: [facility] - SNF
--- NOTE | 2024-05-21 11:35 | NUR ---
RADIOLOGY AT BEDSIDE TO OBTAIN KUB
--- NOTE | 2024-05-21 16:30 | NUR ---
CALLED ICU AGAIN ABOUT PATIENT REPORTING MISSING HER FAO WALKING BRACE THAT FITS IN HER SHOE WHEN SHE WAS IN ICU2. ICU THOUGHT THE PATIENT'S SISTER MAY HAVE TAKEN IT HOME HOWEVER PATIENT'S SISTER DENIES HAVING IT. ICU LOOKING FOR BRACE.
[2024-05-22] VITALS (10 sets, daily range): BP systolic 106–155; BP diastolic 64–88; PULSE 86–100; TEMP 97.5–98.7
--- NOTE | 2024-05-22 02:14 | NUR ---
REC'D CALL FROM TELE MONITOR, PT HAS HAD 2 "VERY BRIEF" RUNS OF AFIB RVR TO 150S SINCE 1899, NOTIFIED MACKENZIE Ruth APRN, ORDERS REC'D
[2024-05-22 02:50] LABS: BASO % 0.2 % (0.0-2.0); EOS # 0.2 K/mm3 (0.0-0.7); EOS % 2.5 % (0.0-4.0); GRAN # 7.3 K/mm3 (1.4-6.5); GRAN % 78.5 % (42.2-75.2); LYMPH # 1.2 K/mm3 (1.2-3.4); MEAN CELL VOLUME 86 fl (80.0-100.0); MEAN CORPUSCULAR HGB CONC 32 g/dl (33.0-37.0); MEAN PLATELET VOLUME 9.6 fl (7.4-10.4); MONO # 0.5 K/mm3 (0.1-0.6); MONO % 5.3 % (1.7-9.3); PLATELET COUNT 241 K/mm3 (130-400); RED BLOOD COUNT 3.47 M/mm3 (4.10-5.30); REDCELL DISTRIBUTION WIDTH-CV 17.9 % (11.5-14.5)
[2024-05-22 03:06] LABS: HEMATOCRIT 29.8 % (37.0-47.0); HEMOGLOBIN 9.5 g/dl (12.5-16.0); MEAN CORPUSCULAR HEMOGLOBIN 27 pg (27-31)
[2024-05-22 03:07] LABS: CALCIUM 8.5 mg/dL (8.4-10.2); CREATININE, serum 0.7 mg/dL (0.57-1.11); POTASSIUM 3.7 mEq/L (3.5-4.5)
[2024-05-22] MEDS ORDERED: Potassium Chloride 100 ML IV SCH (06:00)
--- NOTE | 2024-05-22 06:40 | NUR ---
pt up in chair this am, resting with eyes closed, reported nausea all shift, no vomiting, zofran and compazine given. K+ replacement/IVF infusing per TLCL, flores draining clear, yellow urine. O2 per nc at 2L during the noc. devora intact to abdomen, no drainage noted. minimal discomfort reported.
--- NOTE | 2024-05-22 10:14 | NUR ---
DR.HUSLIG ALMANZAR, SEE ORDERS/NOTES.
--- NOTE | 2024-05-22 10:25 | NUR ---
PT REFUSED RESPIRATORY TREATMENT AT THIS TIME DUE TO NAUSEA. PT IN NO DISTRESS. PT CURRENTLY ON ROOM AIR. VSS. PT ENCOURAGED TO LET RN KNOW IF TREATMENT NEEDED. LET PAIGE GARCIA KNOW.
--- NOTE | 2024-05-22 10:51 | NUR ---
SW set clinical updates to [facility].
--- NOTE | 2024-05-22 11:00 | NUR ---
PATIENT PASSING SOME GAS, ASSISTED TO COMMODE AFTER SUPP. PATIENT WAS ABLE TO HAVE A SMALL, HARD BM. PATIENT REPORTS HER "BOWLS" FEEL BETTER BUT SHE STILL FEELS NAUSEA. NO EMESIS.
--- NOTE | 2024-05-22 12:00 | NUR ---
PATIENT WANTING TO GO BACK TO BED. 2 ASSIST FROM CHAIR TO BED. C/O NAUSEA, NO EMESIS. GAVE PRN NAUSEA MEDS. NO ORAL INTAKE. IV FLUIDS INFUSING VIA PUMP PER ORDERS. PATIENT RESTING WILL CALL LIGHT IN REACH.
[2024-05-23] VITALS (12 sets, daily range): BP systolic 101–156; BP diastolic 52–80; PULSE 86–99; TEMP 97.4–98.6
--- NOTE | 2024-05-23 06:30 | NUR ---
CONTINUES TO REPORT NAUSEA, NO VOMITING, ZOFRAN GIVEN X2, CONGESTION AND COUGH, BUT NOT TAKING MUCINEX OR SINGULAIR D/T NAUSEA. IVF INFUSING PER RIJ CENTRAL LINE. SEAMAN DRAINING CLEAR, YELLOW URINE. NO BMS THIS SHIFT.
[2024-05-23 10:27] LABS: BASO % 0.3 % (0.0-2.0); EOS # 0.1 K/mm3 (0.0-0.7); EOS % 0.9 % (0.0-4.0); GRAN # 8.7 K/mm3 (1.4-6.5); GRAN % 84.9 % (42.2-75.2); LYMPH # 0.9 K/mm3 (1.2-3.4); MEAN CELL VOLUME 89 fl (80.0-100.0); MEAN CORPUSCULAR HEMOGLOBIN 27 pg (27-31); MEAN CORPUSCULAR HGB CONC 30 g/dl (33.0-37.0); MEAN PLATELET VOLUME 10.1 fl (7.4-10.4); MONO # 0.5 K/mm3 (0.1-0.6); MONO % 4.5 % (1.7-9.3); PLATELET COUNT 299 K/mm3 (130-400); RED BLOOD COUNT 3.68 M/mm3 (4.10-5.30); REDCELL DISTRIBUTION WIDTH-CV 17.9 % (11.5-14.5)
[2024-05-23 10:33] LABS: HEMATOCRIT 32.9 % (37.0-47.0)
[2024-05-23 10:47] LABS: ALBUMIN 2.7 g/dL (3.4-4.8); BILIRUBIN,TOTAL 0.6 mg/dL (0.2-1.2); CALCIUM 8.5 mg/dL (8.4-10.2); CREATININE, serum 0.65 mg/dL (0.57-1.11); POTASSIUM 3.9 mEq/L (3.5-4.5)
--- NOTE | 2024-05-23 10:48 | NUR ---
roundhouse worker emailed updates to Killian at [facility]. Discharge Plan: [facility] SNF
[2024-05-24] VITALS (12 sets, daily range): BP systolic 112–133; BP diastolic 58–72; PULSE 77–92; TEMP 97.6–98.7
--- NOTE | 2024-05-24 06:30 | NUR ---
PT HAS BEEN UP TO BSC X3 THIS SHIFT FOR MODERATE LOOSE STOOLS AFTER SUPPOSITORY GIVEN BY PAIGE GARCIA, ON DAYSHIFT. PT REPORTS FEELING A LOT BETTER, ABLE TO REST WELL TONIGHT. IVF INFUSING PER TL CENTRAL LINE IN RIJ, SEAMAN DRAINING CLEAR, YELLOW URINE. PO INTAKE PROGRESSING, TOOK MOST OF HER EVENING MEDS W/O DIFFICULTY. NO C/O PAIN, REFUSING SCHEDULED TYLENOL.
[2024-05-24 07:10] LABS: CALCIUM 7.9 mg/dL (8.4-10.2); CREATININE, serum 0.63 mg/dL (0.57-1.11); MAGNESIUM 1.8 mg/dL (1.6-2.6); POTASSIUM 3.2 mEq/L (3.5-4.5)
[2024-05-24] MEDS ORDERED: *Potassium Replacement Protocol MC SCH (07:30)
[2024-05-24] MEDS ORDERED: Potassium Bicarbonate/Citrate 20 MEQ Effervescent TAB PO SCH (07:30)
--- NOTE | 2024-05-24 09:54 | NUR ---
PT UP TO RECLINER FOR BREAKFAST. ATE 100% OF BREAKFAST. AM MEDS GIVEN ORDERED. SEAMAN CATHETER TO DD WITH CLEAR YELLOW URINE IN BAG. PT DENIES NEEDS AT THIS TIME. AWAITING PLACEMENT TO VIA [facility].
[2024-05-24] MEDS ORDERED: Potassium Chloride 100 ML IV SCH (10:15)
--- NOTE | 2024-05-24 13:32 | NUR ---
shore worker secure emailed clinical updates to [facility] and notified Killian at [facility] patient is not medically ready yet. SW notified [facility] that patient is still in the hospital. Patient may need to get authorization again from [facility] due to not extended stay in the hospital. HUYEN will continue to follow. Discharge plan: SNF - [facility] once cleared.
--- NOTE | 2024-05-24 20:30 | NUR ---
Assessment complete. A&Ox4. Denies pain/nausea/shortness of breath. VS stable. Has been up to commode for stool. Tele reporting SR. NS@75ml/hr to right IJ. Infusing without difficulty. Banuelos cath with clear yellow urine. Plan of care discussed for this shift to include meds/pain control/calling for questions/concerns. Verbalizes understanding. Call light in reach. WIll monitnor.
[2024-05-25] VITALS (12 sets, daily range): BP systolic 110–128; BP diastolic 67–79; PULSE 80–94; TEMP 96.6–98.6
--- NOTE | 2024-05-25 06:40 | NUR ---
Patient rested off an on this shift. Had some hypotension-received 2 fluid bolus. Patient states normal BP for her is 100s/50s. Received dilaudid/zofran at 0500 for abdominal pain rated 7/10. Right hand IV with LR@125ml/hr infusing without difficulty. Tolerated clear liquids. Denies current needs. Call light in reach. Will monitor.
[2024-05-25 06:46] LABS: ANION GAP 9 mmol/L (7-16); CALCIUM 8.2 mg/dL (8.4-10.2); CHLORIDE 105 mEq/L (98-107); CREATININE, serum 0.63 mg/dL (0.57-1.11); GLUCOSE 97 mg/dL (70-99); MAGNESIUM 1.7 mg/dL (1.6-2.6); POTASSIUM 3.7 mEq/L (3.5-4.5); SODIUM 136 mEq/L (136-145)
--- NOTE | 2024-05-25 06:46 | NUR ---
Patient had an unevenful night. Had several BMs overnight. VS remained stable. Right IJ triple lumen flushes without difficulty-good blood return for AM labs. NS@75ml/hr infusing without difficulty. Banuelos cath with clear urine. Denies current questions/concerns. WIll monitor.
[2024-05-25 06:56] LABS: BLOOD UREA NITROGEN < 5 mg/dL (10-20)
--- NOTE | 2024-05-25 08:00 | NUR ---
PATIENT IS A&O. VSS. PATIENT REPORTS SHE FEELS SO MUCH BETTER AND HAS FINALLY BEEN ABLE TO TOLERATE LOW FIBER DIET. IV FLUIDS INFUSING VIA PUMP INTO RIGHT IJ. SEAMAN TO DD WITH MOD AMOUNTS OF CLEAR YELLOW URINE NOTED. ABD MIDLINE & LAP SITES X3 ARE WELL APPROXIMATED WITH JAILYN. ABD IS ROUND, SOFT AND WITH BOWL SOUNDS NOTED. PATIENT REPORTS SHE IS PASSING GAS AND HAD BM'S THE LAST COUPLE DAYS WITH THE HELP OF THE SUPP, SEE MAR. HEAD TO TOE ASSESSMENT COMPLETE. AM MEDS GIVEN. PLAN IS TO DISCHARGE OT [facility] TODAY OR TOMORROW. NO OTHER NEEDS AT THIS TIME. CALL LIGHT IN REACH.
--- NOTE | 2024-05-25 09:46 | NUR ---
forestry conservation worker was notified patient's insurance authorization for SNF was cancelled due to patient not being medically ready yet. HUYEN attended interdisciplinary clinical rounding with Dr. Trevino. Patient is medically ready for discharge to [facility]. HUYEN contacted PT and explained she will need to resubmit for authorization to the insurance and would need their note from today's session. HUYEN met with patient and explained she would need to resubmit but her insurance will need to see that she is willing to work with therapy so she needs to resend a note from today. Patient stated she understands. HUYEN updated [facility] that her authorization will be resent today after her PT and OT work with her. Killian at [facility] acknowledged understanding of authorization being resubmitted. HUYEN will send updates to [facility] later today. HUYEN met with patient and reviewed the important message from Medicare. Patient understood and has no questions or concerns. Patient signed form. HUYEN made copy, placed original in chart, provided copy to patient. Discharge plan: [facility]- SNF
--- NOTE | 2024-05-25 12:36 | NUR ---
grounds worker resubmitted for insurance authorization for patient's SNF stay. SW notified [facility] of submission. SW secure emailed updates to [facility]. Discharge plan: [facility]- SNF pending insurance auth
--- NOTE | 2024-05-25 14:33 | NUR ---
mixed livestock farm worker was notified patient's insurance approved authorization for SNF starting tomorrow 05/26/24. SW updated AJDEN, Dr. Trevino, patient, patient's nurse and patient's family. Discharge plan: [facility] - SNF 05/26/24
--- NOTE | 2024-05-25 20:40 | NUR ---
PT RESTING IN BED, ALERT AND ORIENTEDX4. NO COMPLAINTS OF PAIN AT THIS TIME. ASSESSED PT. MIDLINE SURGICAL SITE IS CLEAN DRY INTACT WITH STERISTRIPS ON. PUT 2 L OF O2 ON PT VIA NASAL CANUALA. GAVE NIGHT TIME MEDS. PT REQUESTED MELOTONIN. ALL THREE IJ PORTS FLUSH WELL. NO OTHER COMPLAINTS AT THIS TIME. CALL LIGHT WITHIN REACH.
--- NOTE | 2024-05-26 | NUR ---
Received report from Sb GIBSON.
[2024-05-26 02:01] VITALS: BP_SYST 117
[2024-05-26 03:07] VITALS: BP 130/82; PULSE 95; TEMP 98.4
[2024-05-26 04:46] VITALS: BP_SYST 130
--- NOTE | 2024-05-26 05:30 | NUR ---
Patient awake at this time, repositioned in bed, denies pain, flores to dependent drainage, with right IJ infusing well flushes well with good blood return, denies further needs, call light and personal items within reach, will continue to monitor.
[2024-05-26 07:30] VITALS: BP 138/77; PULSE 95; TEMP 98.8
[2024-05-26 07:38] LABS: ANION GAP 12 mmol/L (7-16); CALCIUM 8.7 mg/dL (8.4-10.2); CHLORIDE 98 mEq/L (98-107); CREATININE, serum 0.64 mg/dL (0.57-1.11); GLUCOSE 89 mg/dL (70-99); POTASSIUM 3.5 mEq/L (3.5-4.5); SODIUM 135 mEq/L (136-145)
[2024-05-26 07:45] LABS: BLOOD UREA NITROGEN < 5 mg/dL (10-20)
[2024-05-26] MEDS ORDERED: MAG-OX 400400 MG/TAB PO (08:19)
[2024-05-26] MEDS ORDERED: Magnesium Sulfate 1 GM/100 ML IV Soln IV SCH (08:30)
[2024-05-26] MEDS ORDERED: Potassium Chloride 100 ML IV SCH (08:45)
[2024-05-26 09:00] VITALS: BP_SYST 138
--- NOTE | 2024-05-26 11:07 | NUR ---
dietary worker was notified patient is medically ready for discharge. SW contacted [facility] and scheduled transport for 2:30 pm today. SW secure emailed updates and discharge plans to [facility]. SW notified patient's nurse, ammunition specialist, patient and patient's son, Stu. Discharge plan: [facility] - SNF
--- NOTE | 2024-05-26 11:09 | NUR ---
PATIENT ALERT AND ORIENTED X4. VSS. PATIENT HERE FOR HEMICOLECTOMY. MIDLINE CDI WITH STERI-STRIPS APPLIED, LAPS X3 WITH STERI-STRIPS ALL CDI. TLC TO RIJ ALL THREE LUMENS FLUSH WELL WITH GOOD BLOOD RETURN. PATIENT REPORTS MILD ABDOMINAL CRAMPING. PATIENT ON 2LNC. SEAMAN TO DD WITH PAZ OUTPUT. PATIENT RESTING IN CHAIR, CALL LIGHT IN REACH. CHAIR ALARM ON.
[2024-05-26 12:00] VITALS: BP 122/77; PULSE 87; TEMP 98.2
--- NOTE | 2024-05-26 14:16 | NUR ---
RIJ REMOVED. PRESSURE HELD FOR 10 MINUTES, PATIENT LYING FLAT FOR 30 MINUTES. PATIENT TOLERATED WELL. DRESSING APPLIED.
--- NOTE | 2024-05-26 14:43 | NUR ---
PATIENT SANTOSS GATHERED. TRANSFER PACKET GIVEN TO TRANSPORTER. PATIENT PLACED IN WC. REPORT CALLED TO KARAN AT [facility].
[2024-05-27] MEDS ORDERED: Magnesium Oxide 400 MG TAB PO SCH (09:00)
== END 2024-05-26 14:43 | DRG 329 ==
LOC: INPTSU 05-12 11:50 → SURG 05-12 11:50 → ICU 05-15 08:10 → SURG 05-17 20:15
PROVIDERS: Hospitalist; Internal Medicine; Nurse Anesthetist, Certified Registered; Physician Assistant; Surgery; ADMIT Surgery
PROC: 02HV33Z Insertion of Infusion Device into Superior Vena Cava, Percutaneous Approach (ICD-10-PCS; 2024-05-15)
PROC: 30243N1 Transfusion of Nonautologous Red Blood Cells into Central Vein, Percutaneous Approach (ICD-10-PCS; 2024-05-15)
PROC: 0DTF0ZZ Resection of Right Large Intestine, Open Approach (ICD-10-PCS; principal; 2024-05-16)
PROC: 0DNU3ZZ Release Omentum, Percutaneous Approach (ICD-10-PCS; 2024-05-16)
PROC: 8E0W0CZ Robotic Assisted Procedure of Trunk Region, Open Approach (ICD-10-PCS; 2024-05-16)
DX: C18.9 Malignant neoplasm of colon, unspecified (principal); K56.2 Volvulus; I69.354 Hemiplegia and hemiparesis following cerebral infarction affecting left non-dominant side; K56.7 Ileus, unspecified; E87.6 Hypokalemia; K66.0 Peritoneal adhesions (postprocedural) (postinfection); I95.81 Postprocedural hypotension; D64.9 Anemia, unspecified; I10 Essential (primary) hypertension; J44.9 Chronic obstructive pulmonary disease, unspecified; G47.33 Obstructive sleep apnea (adult) (pediatric); I73.9 Peripheral vascular disease, unspecified; G25.81 Restless legs syndrome; G43.909 Migraine, unspecified, not intractable, without status migrainosus; Z66 Do not resuscitate; E66.01 Morbid (severe) obesity due to excess calories; Z68.30 Body mass index [BMI] 30.0-30.9, adult; F41.9 Anxiety disorder, unspecified; Z79.82 Long term (current) use of aspirin; Z87.891 Personal history of nicotine dependence; Z91.199 Patient's noncompliance with other medical treatment and regimen due to unspecified reason; Z53.31 Laparoscopic surgical procedure converted to open procedure
CPT/HCPCS: A4314; A9284; J0360; J0690; J0696; J0780; J1100; J1170; J1720; J1836; J2250; J2405; J2704; J2795; J3010; J3475; J3480; J7030; J7060; J7120; P9016; P9047

== ENCOUNTER 2024-06-07 12:07 | Inpatient (IN) | payer MEDICARE, OTHER ==
[~2024-06-07] VITALS: Ht 170.2 cm; Wt 91.8 kg
[2024-06-07] VITALS (157 sets, daily range): BP systolic 96–109; BP diastolic 60; PULSE 68; TEMP 97.7; O2SAT 69–100
[~2024-06-07 12:07] MED LIST changes: +FLEXERIL 1010 MG/TAB PO; +INDERAL 10MG10 MG PO; +K-TAB20 PO; +MAG-OX 400400 MG/TAB PO; +PROZAC 10MG10 MG PO; +REMERON30 MG PO; +UBRELVY50 MG PO
[2024-06-07] MEDS ORDERED: NS 1,000 ML IV ONE ×2 (12:15→12:54)
[2024-06-07] MEDS ORDERED: cefTRIAXone 1 G in Water For Injection,Sterile 10 ML IV ONE (12:30)
[2024-06-07 12:55] LABS: BASO % 0.3 % (0.0-2.0); EOS # 0.2 K/mm3 (0.0-0.7); EOS % 1.3 % (0.0-4.0); GRAN # 7.4 K/mm3 (1.4-6.5); GRAN % 64.2 % (42.2-75.2); HEMOGLOBIN 10.5 g/dl (12.5-16.0); LYMPH % 25.5 % (20.0-51.0); MEAN CELL VOLUME 81 fl (80.0-100.0); MEAN CORPUSCULAR HEMOGLOBIN 26 pg (27-31); MEAN CORPUSCULAR HGB CONC 32 g/dl (33.0-37.0); MEAN PLATELET VOLUME 10.4 fl (7.4-10.4); MONO % 8.4 % (1.7-9.3); PLATELET COUNT 383 K/mm3 (130-400); RED BLOOD COUNT 4.06 M/mm3 (4.10-5.30); REDCELL DISTRIBUTION WIDTH-CV 17.1 % (11.5-14.5)
[2024-06-07 12:59] LABS: HEMATOCRIT 32.8 % (37.0-47.0)
[2024-06-07 13:08] LABS: ALBUMIN 3.2 g/dL (3.4-4.8); BILIRUBIN,TOTAL 0.7 mg/dL (0.2-1.2); CALCIUM 8.4 mg/dL (8.4-10.2); CREATININE, serum 4.44 mg/dL (0.57-1.11); TOTAL PROTEIN 7.3 g/dl (6.2-8.1)
[2024-06-07] MEDS ORDERED: NORCO 325 MG-51 TAB PO (16:29)
[2024-06-07] MEDS ORDERED: ZOFRAN ODT4 MG PO (16:29)
[2024-06-07] MEDS ORDERED: Ondansetron 4 MG/2 ML VIAL IV PRN (16:45)
[2024-06-07] MEDS ORDERED: Acetaminophen 325 MG TAB PO PRN (16:45)
[2024-06-07] MEDS ORDERED: NS 1,000 ML IV SCH (16:45)
[2024-06-07] MEDS ORDERED: *Potassium Replacement Protocol MC SCH ×2 (16:45→20:15)
[2024-06-07] MEDS ORDERED: Albuterol 90 MCG/PUFF 8 GM MDI IH PRN (17:00)
[2024-06-07 18:10] LABS: URINE APPEARANCE CLOUDY (CLEAR/HAZY); URINE BLOOD NEGATIVE (NEGATIVE); URINE COLOR YELLOW (YELLOW); URINE GLUCOSE NEGATIVE (NEGATIVE); URINE KETONE TRACE (NEGATIVE); URINE NITRATE NEGATIVE (NEGATIVE); URINE PROTEIN(semi-quant) TRACE (NEGATIVE); URINE UROBILINOGEN 0.2 E.U/dL (0.2-1.0)
[2024-06-07 18:25] LABS: AMORPHOUS CRYSTAL PRESENT (NOT PRESENT); COLLECTION METHOD CATHETER; URINE BACTERIA MANY /hpf (NONE SEEN)
--- NOTE | 2024-06-07 19:15 | NUR ---
THIS NURSE RECIEVED REPORT FROM PAIGE PALACIOS. AT THIS TIME, PATIENT SEEN WATCHING TV IN BED. PATIENT HAS NO GRIEVANCES OR NEEDS AT THIS TIME. PATIENT HAS AN IJ ON THE RIGHT SIDE, WITH NS RUNNING AT 125 ML. A SEAMAN WAS PLACED UPON ADMISSION. HAZY, YELLOW URINE NOTED DRAINING WITH NO KINKS OR LOOPS NOTED. PATIENT ORIENTED ON THE CALL LIGHT. BED IN LOW POSITON, CALL LIGHT WITHIN THE PATIENT'S REACH.
[2024-06-07] MEDS ORDERED: Potassium Chloride 100 ML IV ONE (20:15)
[2024-06-07] MEDS ORDERED: Atorvastatin 40 MG TAB PO SCH (21:00)
[2024-06-08] VITALS (744 sets, daily range): BP systolic 72–150; BP diastolic 41–85; PULSE 56–85; TEMP 97.6–98.4; O2SAT 68–100
[2024-06-08] MEDS ORDERED: NS 1,000 ML IV ONE (01:30)
[2024-06-08 04:53] LABS: BASO % 0.2 % (0.0-2.0); EOS # 0.2 K/mm3 (0.0-0.7); EOS % 2.6 % (0.0-4.0); GRAN # 5.8 K/mm3 (1.4-6.5); GRAN % 62.4 % (42.2-75.2); LYMPH # 2.2 K/mm3 (1.2-3.4); LYMPH % 24.2 % (20.0-51.0); MEAN CELL VOLUME 83 fl (80.0-100.0); MEAN CORPUSCULAR HGB CONC 32 g/dl (33.0-37.0); MEAN PLATELET VOLUME 10.5 fl (7.4-10.4); MONO % 10.4 % (1.7-9.3); PLATELET COUNT 322 K/mm3 (130-400); RED BLOOD COUNT 3.34 M/mm3 (4.10-5.30)
[2024-06-08 04:56] LABS: HEMATOCRIT 27.8 % (37.0-47.0); HEMOGLOBIN 8.8 g/dl (12.5-16.0); MEAN CORPUSCULAR HEMOGLOBIN 26 pg (27-31)
[2024-06-08 05:10] LABS: CALCIUM 7.3 mg/dL (8.4-10.2); CREATININE, serum 3.13 mg/dL (0.57-1.11); MAGNESIUM 3.1 mg/dL (1.6-2.6); POTASSIUM 3.3 mEq/L (3.5-4.5)
[2024-06-08] MEDS ORDERED: Potassium Chloride 100 ML IV ONE (06:00)
--- NOTE | 2024-06-08 07:00 | NUR ---
REPORT RECEIVED FROM PAIGE GILES. PT RESTING IN BED, VSS ON 2L O2 PER NC. FLUIDS AND LEVOPHED INFUSING TO RIJ CENTRAL LINE ORDERED. SEAMAN CATHETER IN PLACE TO DEPENDENT DRAINAGE. PT IS ALERT AND ORIENTED, DENIES PAIN. PT DOES COMPLAIN OF NONPRODUCTIVE DRY COUGH. PT INCONTINENT OF STOOL AT THIS TIME, SAMPLE COLLECTED AND SENT TO LAB.
[2024-06-08] MEDS ORDERED: LR 1,000 ML IV SCH (08:30)
[2024-06-08] MEDS ORDERED: 1: LR 1,000 ML 2: NS 1,000 ML IV SCH (08:30)
[2024-06-08] MEDS ORDERED: Budesonide/Glycopyrrolate/Formoterol **** subs to Budesonide + Umeclid/Vilant IH SCH (09:00)
[2024-06-08] MEDS ORDERED: Clopidogrel 75 MG TAB PO SCH (09:00)
[2024-06-08] MEDS ORDERED: Fluticasone Furoate 100 MCG/Inhalation INHALER IH SCH (09:00)
[2024-06-08] MEDS ORDERED: Umeclidinium/Vilanterol 62.5-25 MCG INHALATION/INHALER IH SCH (09:00)
[2024-06-08] MEDS ORDERED: Gabapentin 300 MG CAP PO SCH (09:00)
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
[2024-06-08] MEDS ORDERED: rOPINIRole 0.5 MG TAB PO SCH (19:00)
[2024-06-09] VITALS (215 sets, daily range): BP systolic 111–149; BP diastolic 46–69; PULSE 62–84; TEMP 97.5–98.4; O2SAT 87–100
[2024-06-09] MEDS ORDERED: Benzonatate 100 MG CAP PO PRN (02:00)
[2024-06-09] MEDS ORDERED: Benzonatate 100 MG CAP PO SCH (06:00)
[2024-06-09 06:37] LABS: BASO % 0.4 % (0.0-2.0); EOS # 0.3 K/mm3 (0.0-0.7); EOS % 4.8 % (0.0-4.0); GRAN # 3.1 K/mm3 (1.4-6.5); GRAN % 60.5 % (42.2-75.2); LYMPH # 1.3 K/mm3 (1.2-3.4); LYMPH % 25.7 % (20.0-51.0); MEAN CELL VOLUME 84 fl (80.0-100.0); MEAN CORPUSCULAR HGB CONC 32 g/dl (33.0-37.0); MEAN PLATELET VOLUME 10.6 fl (7.4-10.4); MONO # 0.4 K/mm3 (0.1-0.6); MONO % 7.4 % (1.7-9.3); RED BLOOD COUNT 2.96 M/mm3 (4.10-5.30); REDCELL DISTRIBUTION WIDTH-CV 16.7 % (11.5-14.5)
[2024-06-09 06:47] LABS: HEMATOCRIT 24.9 % (37.0-47.0); HEMOGLOBIN 7.9 g/dl (12.5-16.0); MEAN CORPUSCULAR HEMOGLOBIN 27 pg (27-31); PLATELET COUNT 222 K/mm3 (130-400)
[2024-06-09 07:02] LABS: CALCIUM 7.5 mg/dL (8.4-10.2); CREATININE, serum 1.19 mg/dL (0.57-1.11)
[2024-06-09 07:07] LABS: POTASSIUM 2.8 mEq/L (3.5-4.5)
[2024-06-09] MEDS ORDERED: Potassium Chloride 100 ML IV SCH (08:30)
[2024-06-09] MEDS ORDERED: *Potassium Replacement Protocol MC SCH (08:30)
[2024-06-09] MEDS ORDERED: VOLTAREN GEL 1%1 TU TP (12:28)
[2024-06-09] MEDS ORDERED: CENA K20 MEQ/15 PO (12:34)
--- NOTE | 2024-06-09 13:09 | NUR ---
0700 REPORT RECEIVED FROM PAIGE MICHAEL. PT RESTING IN BED, VSS ON ROOM AIR. LEVOPHED ON STANDBY, IVF INFUSING TO RIJ CENTRAL LINE ORDERED. SEAMAN CATHETER IN PLACE TO DEPENDENT DRAINAGE. PT INCONTINENT OF STOOL, BED CHANGE DONE AT THIS TIME. PT IS ALERT AND ORIENTED, DENIES NEEDS, CALL LIGHT IN REACH ON PT'S RIGHT SIDE. 1000 PT ABLE TO WORK W/ PHYSICAL THERAPY, AND IS SITTING ON SIDE OF BED. PT ABLE TO STAND AND TAKE SIDE STEPS TOWARD HEAD OF BED W/ 1 ASSIST. 1215 PT TAKEN VIA BED TO ROOM 306. ALL OF PT BELONGINGS TAKEN TO NEW ROOM W/ PT. PT GIVEN CALL LIGHT AND BED ALARM SET. PAIGE AUSTIN AT PT BEDSIDE.
[2024-06-09] MEDS ORDERED: Magnesium Oxide 400 MG TAB PO SCH (17:10)
--- NOTE | 2024-06-09 17:19 | NUR ---
Certified Mortician attempted to contact patient's sister, Jillian and left a message. SW also contacted patient who stated she will agree to go to [facility] SN[facility] "if she has to". SW advised she cannot force patient to do anything. SW also stated that this is the recommendation of her care team and patient verbalized understanding. HUYEN uploaded clinicals to [employer] to request auth for SNF.
[2024-06-09] MEDS ORDERED: rOPINIRole 1 MG TAB PO SCH (19:00)
--- NOTE | 2024-06-09 19:56 | NUR ---
Patient arrived to room 306 at approximately 1215, via bed, by ICU staff. Droplet/Contact precautions in place. Pt a/o x4. Right IJ without s/s IV related complications. Tegaderm resecured. Tele on- NSR. On . K+ replaced per K+ Protocol. Banuelos DD cloudy yellow urine. Pt incontinent of small amounts of stool when coughs. Left sided weakness noted- history of stroke. Bedside report given to Kenia Leiva RN.
[2024-06-09] MEDS ORDERED: Mirtazapine 15 MG TAB PO SCH (21:00)
[2024-06-09] MEDS ORDERED: Montelukast 10 MG TAB PO SCH (21:00)
--- NOTE | 2024-06-09 21:28 | NUR ---
PATIENT RESTING IN BED WATCHING TV. IS REQUESTING TO BE CHANGED SINCE SHE HAD A BOWEL MOVEMENT WHILE COUGHING. STATES COUGH IS MOSTLY UNPRODUCTIVE. REPOSITIONED TO PATIENTS SATISFACTION. CALL LIGHT IS WITHIN REACH. BED IS LOCKED AND IN LOW POSITION.
[2024-06-10] MEDS ORDERED: Potassium Chloride 100 ML IV SCH (03:15)
[2024-06-10 03:25] VITALS: BP 140/64; PULSE 78; TEMP 98
[2024-06-10 07:18] VITALS: BP 124/52; PULSE 68; TEMP 97.4
[2024-06-10] MEDS ORDERED: FLUoxetine 10 MG TAB/CAP PO SCH (09:03)
[2024-06-10] MEDS ORDERED: Propranolol 20 MG TAB PO SCH (09:03)
[2024-06-10] MEDS ORDERED: rOPINIRole 0.5 MG TAB PO SCH (09:04)
--- NOTE | 2024-06-10 09:05 | NUR ---
RIJ ASSESSED. BOTH BLUE AND BROWN LINES FLUSH, BUT GIVE NO BLOOD RETURN (ATEMPTED TO SEE IF POSITOINAL HOWEVER THE PATIENT GOT AGITATED WHEN ASKED TO REOSITION). WHITE LINE GIVES BLOOD RETURN AND FLUSHES WELL. IVF DISCONTINUED.
[2024-06-10 09:17] LABS: BASO % 0.3 % (0.0-2.0); EOS # 0.2 K/mm3 (0.0-0.7); EOS % 3.3 % (0.0-4.0); GRAN # 3.8 K/mm3 (1.4-6.5); GRAN % 66.1 % (42.2-75.2); LYMPH # 1.3 K/mm3 (1.2-3.4); LYMPH % 22.5 % (20.0-51.0); MEAN CELL VOLUME 84 fl (80.0-100.0); MEAN CORPUSCULAR HGB CONC 32 g/dl (33.0-37.0); MEAN PLATELET VOLUME 9.8 fl (7.4-10.4); MONO # 0.4 K/mm3 (0.1-0.6); MONO % 7.1 % (1.7-9.3); PLATELET COUNT 218 K/mm3 (130-400); RED BLOOD COUNT 3.27 M/mm3 (4.10-5.30); REDCELL DISTRIBUTION WIDTH-CV 16.8 % (11.5-14.5)
--- NOTE | 2024-06-10 09:18 | NUR ---
YURY IS UNCOOPERATIVE AND RUDE WITH STAFF. THIS RN ASKED THE PATIENT IF SHE NEEDS ANYTHING FOR COUGH AND IS COMFORTABLE, THE CARLITANET STATED "WHAT I NEED IS TO BE LEFT THE HELL ALONE!" THIS RN EDUCATED THE PATIENT THAT SHE NEEDS TO RECIEVE HER MEDICAITON AND THIS RN WOULD LIKE TO ASSESS HER. THE PATIENT STATED SHE DOESNT WANT HER MEDICATION BECAUSE IT IS :MAKING ME MORE SICK." YURY REFUSING TO ALLOW THIS RN TO ASSESS HER OR GIVE MEDICATIONS. PATIENT LYING IN BED ON HER LEFT SIDE, CALL LIGHT WITHIN REACH, FALL PRECAUTIONS IN PLACE, SEAMAN APPEARS TO BE PATENT AND DRAINING, IVF DISCONTINUED. BED ALARM ON.
[2024-06-10 09:26] LABS: HEMATOCRIT 27.3 % (37.0-47.0); HEMOGLOBIN 8.6 g/dl (12.5-16.0); MEAN CORPUSCULAR HEMOGLOBIN 26 pg (27-31)
[2024-06-10] MEDS ORDERED: Gabapentin 300 MG CAP PO SCH (09:30)
[2024-06-10 09:44] LABS: CALCIUM 8.1 mg/dL (8.4-10.2); CREATININE, serum 0.71 mg/dL (0.57-1.11); POTASSIUM 3.9 mEq/L (3.5-4.5)
--- NOTE | 2024-06-10 10:14 | NUR ---
SW did chart review to complete initial assessment for discharge planning due to patient being covid +. Patient known to this SW from previous admissions. Patient was discharged to [facility] at last discharge and is reported to have been discharged to home with her yesterday. Patient readmitted to hospital due to covid symptoms. Patient and live in [place]. Their son Yared is patient's DPOA ([phone]). Patient's Dominick is also listed as DPOA but has advancing Alzheimer's dementia. Patient sees Reginald Nunez as her PCP and uses [facility] pharmacy. Patient uses a walker, bsc and shower chair at home. SW provided Medicare.gov list of SNF facilities. Patient is agreeable to return to [facility] at discharge, where her was taken yesterday due to patient's return to hospital. Referral sent via secure email. HUYEN spoke with patient's son Yared to inform of patient's decision to return to [facility]. He is in agreement. Discharge plan: SNF
--- NOTE | 2024-06-10 10:28 | NUR ---
PATIENT REFUSED HYGIENE CARE BY PCT
[2024-06-10 10:33] LABS: CLOSTRIDIUM DIFF A/B NEG
[2024-06-10] MEDS ORDERED: Loperamide 2 MG CAP PO PRN (10:45)
[2024-06-10 11:39] VITALS: BP 159/74; PULSE 70; TEMP 97.6
--- NOTE | 2024-06-10 13:07 | NUR ---
HUYEN notified by Killian at [facility] that authorization is approved from insurance. HUYEN notified attending who is agreeable to discharge today. Orders and clinical updates sent to [facility]. Discharge plan: [facility] SNF
--- NOTE | 2024-06-10 13:50 | NUR ---
PRIOR TO R IJ REMOVAL THIS RN NOTICED SOME POSSIBLE SWELLING TO INSERTION SITE ONCE DRESSING WAS REMOVED. STATEMENT CLERKS MANAGER AND AIVS NURSE CHECKED SITE, THIS RN OK TO REMOVE IJ. AFTER PRESSURE HELD PER PROTOCOL PATIENT IS ON FLAT TIME UTIL 1400. PATIENT EDUCATED MULTIPLE TIMES REGARDING POSS CONSEQUENCES IF FALT TIME NOT UPHELD PE PROTOCOL. PATIENT SEEMS INSTANT ON MOVING BUT VOICED UNDERSTANDING TO REMAIN FLAT.
--- NOTE | 2024-06-10 14:15 | NUR ---
PATEINT PICKED UP BY [facility] STAFF. STAFF INFORMED OF PATIENT BEING COVID POSITIVE. PATIENT LEFT AWAKE AND ALERT AND IN STABLE CONDITION. PATIENT RIJ REMOVAL SITE CDI.
--- NOTE | 2024-06-10 14:20 | NUR ---
SW attempted to call patient's phone 3 times to review Medicare IM form. Patient did not answer or it went straight to voicemail. SW signed IM form with this information indicated. 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
--- NOTE | 2024-06-10 14:40 | NUR ---
REPORT CALLED TO AYANA AT [facility]. ALL QUESTIONS ANSWERED.
== END 2024-06-10 15:16 | DRG 177 ==
LOC: COL.ER 12:07 → ICU 15:01 → MEDICAL 15:01 → ICU 16:39 → MEDICAL 06-09 13:38 → COL.ER 06-09 13:38 → MEDICAL 06-09 18:35
PROVIDERS: Personal Emergency Response Attendant; Physician Assistant; ADMIT Hospitalist
PROC: 02HV33Z Insertion of Infusion Device into Superior Vena Cava, Percutaneous Approach (ICD-10-PCS; principal; 2024-06-07)
PROC: 3E043XZ Introduction of Vasopressor into Central Vein, Percutaneous Approach (ICD-10-PCS; 2024-06-08)
DX: U07.1 COVID-19 (principal); J96.01 Acute respiratory failure with hypoxia; R57.1 Hypovolemic shock; N17.9 Acute kidney failure, unspecified; I69.354 Hemiplegia and hemiparesis following cerebral infarction affecting left non-dominant side; E87.1 Hypo-osmolality and hyponatremia; K91.2 Postsurgical malabsorption, not elsewhere classified; E87.20 Acidosis, unspecified; N39.0 Urinary tract infection, site not specified; Z66 Do not resuscitate; I95.9 Hypotension, unspecified; I10 Essential (primary) hypertension; G25.81 Restless legs syndrome; G47.33 Obstructive sleep apnea (adult) (pediatric); J44.9 Chronic obstructive pulmonary disease, unspecified; F10.20 Alcohol dependence, uncomplicated; E86.0 Dehydration; G43.909 Migraine, unspecified, not intractable, without status migrainosus; D72.10 Eosinophilia, unspecified; F41.9 Anxiety disorder, unspecified; B96.20 Unspecified Escherichia coli [E. coli] as the cause of diseases classified elsewhere; I73.9 Peripheral vascular disease, unspecified; E87.6 Hypokalemia; R33.9 Retention of urine, unspecified; D64.9 Anemia, unspecified; Z87.891 Personal history of nicotine dependence; Z98.51 Tubal ligation status; Z90.49 Acquired absence of other specified parts of digestive tract; Z99.81 Dependence on supplemental oxygen; Z99.89 Dependence on other enabling machines and devices; Z79.899 Other long term (current) drug therapy; Z79.85 Long-term (current) use of injectable non-insulin antidiabetic drugs; Z79.82 Long term (current) use of aspirin; Z79.51 Long term (current) use of inhaled steroids; Z79.891 Long term (current) use of opiate analgesic; Z85.038 Personal history of other malignant neoplasm of large intestine; Z91.199 Patient's noncompliance with other medical treatment and regimen due to unspecified reason; Z79.02 Long term (current) use of antithrombotics/antiplatelets
CPT/HCPCS: A4314; C1751; J0696; J2543; J3480; J7030; J7060; J7120